=== PATIENT | male | born 1955 ===

== ENCOUNTER 2022-05-27 16:02 | Inpatient (IN) | payer OTHER ==
--- OUTSIDE RECORDS SUMMARY | 2022-05-27 16:49 | XMS REPORT | Continuity of Care Document ---
:1955 Author Organization [facility] t Address [address] [place] [address] Care Team Providers Name Role Phone Asked, No Pcp Primary Care Physician Unavailable CHAD MOE Attending Clinician Unavailable Chad Moe MD Attending Clinician Tashi Higgins Attending Clinician Unavailable Rad_Gamal Attending Clinician Unavailable CHIDI ABARCA Attending Clinician Unavailable Huseyin Smith MA Attending Clinician Unavailable Julio RN, Bernadine Attending Clinician Unavailable Mercedes_Yanicko Attending Clinician Unavailable Doctor Unassigned, [place] Attending Clinician Unavailable CHAD MOE Admitting Clinician Unavailable Chad Moe MD Admitting Clinician Geovany Admitting Clinician Unavailable Ngmelissaen_Tho Admitting Clinician Unavailable Payers Payer Name Policy Type Policy Number Effective Date Expiration Date Jaki DE LA CRUZ/NETTIE [id number] 2022 MEDICARE ADVANTAGE 00:00:00 [facility] MEDICARE [id number] COMPLETE (MEDICARE REPLACEMENT HMO) MEDICARE B-[place]: [id number] 2020 [email or web address] 00:00:00 Problems Condition Condition Condition Status Onset Resolution Last Treating Co mments Source Name Details Category Date Date Treatment Clinician Date Fall at Fall at Disease Active Univers home, home, 1-03 ity of sequela sequela 00:00: [place] 00 Medical Branch History of History of Disease Active U nivers stroke stroke 1-03 ity of 00:00: [place] 00 Medical Branch Closed Closed Problem Active 2021-05 [place] fracture Fracture 2-29 da of of 00:00: Medical proximal Proximal 00 Group right Right humerus Humerus Closed Closed Problem Active 2021-05 [place] fracture Fracture 2-29 da of of 00:00: Medical multiple Multiple 00 Group left ribs Left Ribs Abdominal Abdominal Problem Active [place] aortic Aortic 1-25 da aneurysm Aneurysm 00:00: Medica l 00 Group Melena Melena Problem Active [place] 1-25 da 00:00: Medical 00 Group Vomiting Vomiting Problem Active [place] 1-20 da 00:00: Medical 00 Group Chronic Chronic Problem Active [place] obstructiv Obstructiv 1-04 da e lung e Lung 00:00: Medical disease Disease 00 Group Smokes Smokes Problem Active 2020-05 [place] tobacco Tobacco 2-23 da daily Daily 00:00: Medical 00 Group Allergies, Adverse Reactions, Alerts Allergy Allergy Status Severity Reaction(s) Onset Inactive Treating Comm ents Source Name Type Date Date Clinician NO KNOWN Drug Active Univers ALLERGIE Class ity of [facility] Medical Branch Social History Social Habit Start Date Stop Date Quantity Comments Source History SDOH Social Unive rsity of Connections [facility] Med ical Together Branch History SDOH Social Unive rsity of [facility] Medical Branch History SDOH Social Unive rsity of [facility] Medical Membership Branch History SDOH Social Unive rsity of [facility] Medical Meetings Branch History of tobacco Passive smoker Un iversity of use [place] [facility] History SDOH 2022-05-21 2022-05-21 1 University o f Alcohol Std Drinks 00:00:00 00:00:00 [place] [facility] History SDOH 2022-05-21 2022-05-21 1 University o f Alcohol Binge 00:00:00 00:00:00 [place] Medic al Branch History SDOH Social 2022-05-21 2022-05-21 2 Unive rsity of [employer] 00:00:00 00:00:00 [place] M edical Branch History SDOH Social 2022-05-21 2022-05-21 5 Unive rsity of Connections Living 00:00:00 00:00:00 [place] [facility] History SDOH 2022-05-21 2022-05-21 0 University o f Physical Activity 00:00:00 00:00:00 [facility] edical DPW Branch History SDOH 2022-05-21 2022-05-21 0 University o f Physical Activity 00:00:00 00:00:00 [facility] edical MPS Branch History SDMA 2022-05-21 2022-05-21 5 University o f Financial 00:00:00 00:00:00 [place] [facility] History SDOH Food 2022-05-21 2022-05-21 1 Univers ity of Worry 00:00:00 00:00:00 [place] [facility] History SDOH Food 2022-05-21 2022-05-21 1 Univers ity of Scarcity 00:00:00 00:00:00 [place] [facility] History SDMA 2022-05-21 2022-05-21 2 University o f Transport Med 00:00:00 00:00:00 [place] [facility] History SDMA 2022-05-21 2022-05-21 2 University o f Transport Non-Med 00:00:00 00:00:00 [facility] edical Branch History SDMA 2022-05-21 2022-05-21 3 University o f Alcohol Frequency 00:00:00 00:00:00 [facility] edical Branch Tobacco use and 2022-05-20 2022-05-20 Smokeless Universit y of exposure 00:00:00 00:00:00 tobacco non-user [facility] dical Branch Cigarettes smoked 2021-07-17 2021-07-[address] current (pack per 00:00:00 00:00:00 Hospita l day) - Reported Cigarette 2021-07-17 2021-07-17 [facility] pack-years 00:00:00 00:00:00 Hospital Alcohol intake 2021-07-17 2021-07-17 Current drinker [facility] 00:00:00 00:00:00 of alcohol Hospital (finding) Sex Ass[birth year] At [birth year] [facility] 00:00:00 00:00:00 Hospital Smoking Status Start Date Stop Date Source Tobacco smoking consumption Univ ersity of [place] [facility] unknown Branch Occasional tobacco smoker 2022-05-20 00:00:00 Un iversity [facility] Medical Branch Smokes tobacco daily 2021-07-17 00:00:00 [facility] [place] [facility] Medications Ordered Filled Start Stop Current Ordering Indication Dosage Frequency Signature Comments Components Source Medication Medication Date Date Medication? Clinician (SIG) Name Name atorvastati Yes [id number] 40mg Take 1 Univers n 40 mg 1-10 tablet by ity of tablet 00:00: mouth at [place] 00 bedtime. Medical Branch Saline Yes [id number] 6mL 6 mL, Unive rs Bubble 1-06 Injection, ity of Study 14:18: SEE-INSTRU [place] 38 CTIONS, Medical Starting Branch on Thu05/23/22 at 0818, Until Discontinu ed, Routine thiamine Yes 100mg 100 mg, Unive rs (VITAMIN 1-05 Oral, ity of B1) tablet 15:00: DAILY, [place] 100 mg 00 First dose Medical on Thu Branch 05/22/22 at 0900, Until Discontinu ed, Routine clopidogreL Yes 75mg 75 mg, Univ ers (PLAVIX) 75 1-04 Oral, ity of mg tablet 15:00: DAILY, [place] 75 mg 00 First dose Medical on Thu05/21/22 at 0900, Until Discontinu ed, Routine sennosides- Yes 1{tbl} 1 tablet, Univers docusate 1-04 Oral, ity of sodium 15:00: DAILY, [place] (SENOKOT-S) 00 First dose Me dical 8.6-50 mg (after Branch per tablet last 1 tablet modificati on) on Thu05/21/22 at 0900, Until Discontinu ed, Routine aspirin Yes 81mg 81 mg, Univers chewable 1-04 Oral, ity of tablet 81 15:00: DAILY, [place] mg 00 First dose Medical on Thu Branch 05/21/22 at 0900, Until Discontinu ed, Routine atorvastati Yes 40mg 40 mg, Univ ers n (LIPITOR) 1-04 Oral, QHS, it y of tablet 40 03:00: [place] mg 00 (after Medical last Branch modificati on) on Thu05/20/22 at 2100, Until Discontinu ed, Routine heparin Yes 5000U 5,000 Univers (porcine) -04 Units, ity of injection 02:00: Subcutaneo [place] 5,000 Units 00 us, Q12H, Med ical First dose Branch on Thu05/20/22 at 2000, Until Discontinu ed, Routine famotidine 2022- No 20mg 20 mg, Univ ers (PEPCID) 40 05-21 Oral, BID, i ty of mg/5 mL (8 02:00: 13:50 2 doses, [place] mg/mL) 00 :00 First dose Medical suspension (after Branch 20 mg last modificati on) on Thu05/20/22 at 2000, Last dose on Thu05/21/22 at 0800, Routine
Indicatio n for use: None of the above clopidogreL 2022- No 300mg 300 mg, U nivers (PLAVIX) 05-20 Oral, ity of 300 mg 23:00: 23:10 ONCE, 1 [place] tablet 300 00 :00 dose, On Medic al mg Thu05/20/22 Branch at 1700, Routine aspirin 2022- No 325mg 325 mg, Unive rs tablet 325 05-20 Oral, ity of mg 23:00: 23:10 ONCE, 1 [place] 00 :00 dose, On Medical Thu05/20/22 Branch at 1700, Routine iopamidol 2022- No [id number] 50mL 50 mL, U nivers (ISOVUE 05-20 Intravenou ity o f 370-500 mL) 21:23: 21:23 s, ONCE, 1 [place] injection 00 :00 dose, On Medica l 50 mL Thu05/20/22 Branch at 1545, Routine sulfur 2022- No [id number] 5mL 5 mL, Unive rs hexafluorid 05-20 Intravenou i ty of e microsphr 20:30: 20:30 s, ONCE, 1 [place] (LUMASON) 00 :00 dose, On Medica l injection 5 Thu05/20/22 Br anch mL at 1430, Routine
administrative appeals tribunal member approving Restricted medication : MISSY BAKER potassium No 40meq 40 mEq, IV Univers chloride in 05-20 Infusion, it y of water (KCL) 19:45: 01:56 ONCE, 1 [place] 20 mEq/100 00 :00 dose, On Medic al mL RTU IVPB Thu05/20/22 Br anch 40 mEq at 1345, 200 mL foLIC acid Yes 1mg 1 mg, Univer s (FOLATE) 05-20 Oral, ity of tablet 1 mg 19:30: DAILY, [place] First dose Medical on [facility] 05/20/22 at 1330, Until Discontinu ed, Routine acetaminoph Yes 650mg 650 mg, Un alysha en 05-20 Oral, ity of (TYLENOL) 19:01: Q6HPRN, [place] tablet 650 36 Starting Medic al mg on 05/20/22 at 1301, Until Discontinu ed, Routine, Pain (scale 4-6) chlorhexidi Yes 15mL 15 mL, Univ ers ne 05-20 Oral ity of (PERIDEX) 18:00: ([place] 0.12 % 00 Spit Out), Medical mouthwash Q6H, First Bran ch 15 mL dose on Thu05/20/22 at 1200, Until Discontinu ed, Routine No known No No known [facility] 05-20 medication it y of 11:19: s [address] amlodipine amlodipine No amlodipine [place] 5 mg tablet 5 mg tablet 5 mg d a TAKE ONE TAKE ONE tablet Medic al (1) (1) TAKE ONE Group TABLET(S) TABLET(S) (1) BY MOUTH BY MOUTH TABLET(S) ONCE A DAY ONCE A DAY BY MOUTH FOR FOR ONCE A DAY HYPERTENSIO HYPERTENSIO FOR N. N. HYPERTENSI ON. famotidine famotidine No famotidine [place] 20 mg 20 mg 20 mg da tablet TAKE tablet TAKE tablet Medical ONE (1) ONE (1) TAKE ONE Group TABLET(S) TABLET(S) (1) BY MOUTH BY MOUTH TABLET(S) TWICE A TWICE A BY MOUTH DAY. DAY. TWICE A DAY. ondansetron ondansetron No ondansetro [place] HCl 4 mg HCl 4 mg n HCl 4 mg d a tablet TAKE tablet TAKE tablet Medical ONE (1) ONE (1) TAKE ONE Group TABLET(S) TABLET(S) (1) BY MOUTH BY MOUTH TABLET(S) EVERY SIX EVERY SIX BY MOUTH HOURS HOURS EVERY SIX NEEDED FOR NEEDED FOR HOURS NAUSEA AND NAUSEA AND NEEDED FOR VOMITING. VOMITING. NAUSEA AND VOMITING. amlodipine amlodipine No amlodipine [place] 5 mg tablet 5 mg tablet 5 mg d a TAKE ONE TAKE ONE tablet Medic al (1) (1) TAKE ONE Group TABLET(S) TABLET(S) (1) BY MOUTH BY MOUTH TABLET(S) ONCE A DAY ONCE A DAY BY MOUTH FOR FOR ONCE A DAY HYPERTENSIO HYPERTENSIO FOR N. N. HYPERTENSI ON. Vital Signs Vital Name Observation Time Observation Value Comments Source Systolic blood 2022-05-27 17:00:00 138 mm[Hg] [facility] Diastolic blood 2022-05-27 17:00:00 75 mm[Hg] [facility] Heart rate 2022-05-27 17:00:00 70 /min [facility] Body temperature 2022-05-27 17:00:00 36.33 Caitlin [facility] Respiratory rate 2022-05-27 17:00:00 21 /min [facility] Oxygen saturation in 2022-05-27 17:00:00 100 /min [facility] Arterial blood by [facility] Pulse oximetry Branch Body height 2022-05-20 17:15:00 180.3 cm [facility] Body weight 2022-05-20 17:14:00 60.8 kg [facility] BMI 2022-05-20 17:14:00 18.69 kg/m2 [facility] BP Diastolic 2022-05-15 00:00:00 81 mm[Hg] [facility] Height 2022-05-15 00:00:00 71 [in_i] [facility] BMI (Body Mass 2022-05-15 00:00:00 18.3 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 BP Systolic 2022-05-15 00:00:00 125 mm[Hg] [facility] Body Weight 2022-05-15 00:00:00 2100.8 [oz_av] [facility]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 BP Diastolic 2021-06-11 00:00:00 79 mm[Hg] [facility] Height 2021-06-11 00:00:00 71 [in_i] [facility] BMI (Body Mass 2021-06-11 00:00:00 18.5 kg/m2 [facility] Medical Index) Group BP Systolic 2021-06-11 00:00:00 139 mm[Hg] [facility] Body Weight 2021-06-11 00:00:00 2128 [oz_av] [facility] Height 2021-06-06 00:00:00 71 [in_i] [facility] BP Diastolic 2021-05-21 00:00:00 85 mm[Hg] [facility] Height 2021-05-21 00:00:00 71 [in_i] [facility] BMI (Body Mass 2021-05-21 00:00:00 18.5 kg/m2 [facility] BP Systolic 2021-05-21 00:00:00 130 mm[Hg] [facility] Body Weight 2021-05-21 00:00:00 2120 [oz_av] [facility] BP Diastolic 2021-05-09 00:00:00 86 mm[Hg] [facility] Height 2021-05-09 00:00:00 71 [in_i] [facility] BMI (Body Mass 2021-05-09 00:00:00 18.4 kg/m2 [facility] Group BP Systolic 2021-05-09 00:00:00 137 mm[Hg] [facility] Body Weight 2021-05-09 00:00:00 2112 [oz_av] [facility] BMI (Body Mass 2021-03-11 00:00:00 18.4 kg/m2 [facility]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 BP Systolic 2021-03-11 00:00:00 118 mm[Hg] [facility] Body Weight 2021-03-11 00:00:00 2112 [oz_av] [facility] BP Diastolic 2021-03-11 00:00:00 77 mm[Hg] [facility] Height 2021-03-11 00:00:00 71 [in_i] [facility] Systolic blood 2021-07-17 20:49:00 173 mm[Hg] [facility] pressure Diastolic blood 2021-07-17 20:49:00 85 mm[Hg] [facility] pressure Heart rate 2021-07-17 20:49:00 91 /min [facility] Body temperature 2021-07-17 20:49:00 33.33 Caitlin [facility] Body height 2021-07-17 20:49:00 180.3 cm [facility] Body weight 2021-07-17 20:49:00 60.782 kg [facility] BMI 2021-07-17 20:49:00 18.69 kg/m2 [facility] Oxygen saturation in 2021-07-17 20:49:00 100 /min [facility] Arterial blood by Pulse oximetry Procedures Procedure Date / Time Performing Clinician Source Performed TRANSTHORACIC ECHO (TTE) 2022-05-23 14:15:00 Nahun Khan [facility] [place] [place] MODIFIED BARIUM 2022-05-22 17:50:00 Tan [facility] XR SHOULDER 2+ VW RIGHT 2022-05-21 23:35:00 Zana Roblero [facility] XR HIPS 3 VW BILATERAL 2022-05-21 18:15:00 Tan Gonzalez [facility] CBC WITH DIFF 2022-05-21 10:28:00 Bill [facility] VITAMIN B1 (THIAMINE), 2022-05-21 10:28:00 [facility] WHOLE BLOOD [facility] MAGNESIUM 2022-05-21 10:28:00 Bill [facility] BASIC METABOLIC PANEL 2022-05-21 10:28:00 Nahun Khan [facility] (NA, K, CL, CO2, Medical Branch GLUCOSE, BUN, CREATININE, CA) LIPID PANEL 2022-05-21 10:28:00 Bill [facility] ([id number])(TOTAL Medical [place] CHOLESTEROL, TRIGLYCERIDES, HDL) XR HUMERUS 2 VW RIGHT 2022-05-20 23:01:00 [facility] CT STROKE PERFUSION W 2022-05-20 21:30:46 Bill [facility] CONTRAST [facility] MR BRAIN WO CONTRAST 2022-05-20 21:10:00 [facility] TRANSTHORACIC ECHO (TTE) 2022-05-20 20:27:50 Bill [facility] COMPLETE W/ CONTRAST Medical [facility] HEAD WO CONTRAST 2022-05-20 18:23:05 Bill [facility] CT ANGIOGRAM NECK 2022-05-20 18:22:51 Bill [facility] CT ANGIOGRAM HEAD 2022-05-20 18:22:32 Bill [facility] ETHANOL 2022-05-20 18:01:00 Bill [facility] CBC WITH DIFF 2022-05-20 18:01:00 Bill [facility] GLYCOSYLATED HEMOGLOBIN 2022-05-20 18:01:00 Bill [facility] (A1C) [facility] PROTHROMBIN TIME / INR 2022-05-20 18:01:00 Bill [facility] ACTIVATED PARTIAL 2022-05-20 18:01:00 Bill [facility] THRMPLAS ROBIN [facility] POCT GLUCOSE (AUTOMATED) 2022-05-20 18:01:00 Chad Moe [facility] MAGNESIUM 2022-05-20 18:01:00 Bill [facility] FOLATE 2022-05-20 18:01:00 Bill [facility] TROPONIN I 2022-05-20 18:01:00 Bill [facility] THYROID STIMULATING 2022-05-20 18:01:00 [facility] Branch BASIC METABOLIC PANEL 2022-05-20 18:01:00 francisco [facility] (NA, K, CL, CO2, Medical Branch GLUCOSE, BUN, CREATININE, CA) MRSA / MSSA SCREEN BY 2022-05-20 17:54:00 Sheryl [facility] PCR, NARES Medical Branch XR CHEST 1 VW 2022-05-20 17:49:00 Sheryl [facility] o f [facility] US CAROTID DUPLEX 2021-08-23 17:15:00 [facility] BILATERAL [facility] US DUPLEX ARTERIAL LOWER 2021-08-23 16:20:00 [facility] EXTREMITY BILATERAL [facility] US ANKLE BRACHIAL INDEX 2021-08-23 16:20:00 [facility] US DUPLEX AORTA INFERIOR 2021-08-23 14:55:00 [facility] VENA CAVA COMPLETE [facility] CT ABD/PELVIC EXTERNAL 2021-06-06 23:56:45 [facility] STUDY [facility] HOSPITAL ADMISSION 2021-05-20 06:01:00 Doctor Unassigned, No Uni versity of [facility] unlisted imaging order 2021-05-09 00:00:00 [facility] Plan of Care Planned Activity Planned Date Details Comments Source Future Scheduled 2022-04-29 COVID-19 VACCINE (#1) [facility] Test 06:38:53 [code = COVID-19 VACCINE (#1)] Future Scheduled 2022-04-29 65+ PNEUMOCOCCAL [facility] [place] [facility] Test 06:38:53 VACCINE (1 - PCV) [code = 65+ PNEUMOCOCCAL VACCINE (1 - PCV)] Future Scheduled 2022-04-29 Hepatitis C screening [facility] Test 06:38:53 (procedure) [code = 857212448] Future Scheduled 2022-04-29 COLONOSCOPY SCREENING [facility] Test 06:38:53 [code = COLONOSCOPY SCREENING] Future Scheduled 2022-04-29 Screening for [facility] Test 06:38:53 malignant neoplasm of lung (procedure) [code = 463134004] Future Scheduled 2022-04-29 SHINGLES VACCINES (1 Met [facility] Test 06:38:53 of 2) [code = SHINGLES VACCINES (1 of 2)] Future Scheduled 2022-04-29 INFLUENZA VACCINE [facility] Test 06:38:53 [code = INFLUENZA VACCINE] Future Scheduled 2022-04-29 COVID-19 VACCINE (#1) [facility] Test 06:38:53 [code = COVID-19 VACCINE (#1)] Future Scheduled 2022-04-29 65+ P[facility]UMOCOCCAL [facility] Test 06:38:53 VACCINE (1 - PCV) [code = 65+ PNEUMOCOCCAL VACCINE (1 - PCV)] Future Scheduled 2022-04-29 Hepatitis C screening [facility] Test 06:38:53 (procedure) [code = 730829421] Future Scheduled 2022-04-29 COLONOSCOPY SCREENING [facility] Test 06:38:53 [code = COLONOSCOPY SCREENING] Future Scheduled 2022-04-29 Screening for [facility] Test 06:38:53 malignant neoplasm of lung (procedure) [code = 354212356] Future Scheduled 2022-04-29 SHINGLES VACCINES (1 Met [facility] Test 06:38:53 of 2) [code = SHINGLES VACCINES (1 of 2)] Future Scheduled 2022-04-29 INFLUENZA VACCINE [facility] Test 06:38:53 [code = INFLUENZA VACCINE] Future Scheduled 2022-04-29 COVID-19 VACCINE (#1) [facility] Test 06:38:53 [code = COVID-19 VACCINE (#1)] Future Scheduled 2022-04-29 65+ PNEUMOCOCCAL [facility] Test 06:38:53 VACCINE (1 - PCV) [code = 65+ PNEUMOCOCCAL VACCINE (1 - PCV)] Future Scheduled 2022-04-29 Hepatitis C screening [facility] Test 06:38:53 (procedure) [code = 953954451] Future Scheduled 2022-04-29 COLONOSCOPY SCREENING [facility] Test 06:38:53 [code = COLONOSCOPY SCREENING] Future Scheduled 2022-04-29 [facility] Test 06:38:53 malignant neoplasm of lung (procedure) [code = 048829921] Future Scheduled 2022-04-29 SHINGLES VACCINES (1 Met [facility] Test 06:38:53 of 2) [code = SHINGLES VACCINES (1 of 2)] Future Scheduled 2022-04-29 INFLUENZA VACCINE [facility] Test 06:38:53 [code = INFLUENZA VACCINE] Future Scheduled 2022-04-29 COVID-19 VACCINE (#1) [facility] Test 06:38:53 [code = COVID-19 VACCINE (#1)] Future Scheduled 2022-04-29 65+ [facility]OCOCCAL [facility] Test 06:38:53 VACCINE (1 - PCV) [code = 65+ PNEUMOCOCCAL VACCINE (1 - PCV)] Future Scheduled 2022-04-29 Hepatitis C screening [facility] Test 06:38:53 (procedure) [code = 979315599] Future Scheduled 2022-04-29 COLONOSCOPY SCREENING [facility] Test 06:38:53 [code = COLONOSCOPY SCREENING] Future Scheduled 2022-04-29 [facility] Test 06:38:53 malignant neoplasm of lung (procedure) [code = 838123372] Future Scheduled 2022-04-29 SHINGLES VACCINES (1 Met [facility] Test 06:38:53 of 2) [code = SHINGLES VACCINES (1 of 2)] Future Scheduled 2022-04-29 INFLUENZA VACCINE [facility] Test 06:38:53 [code = INFLUENZA VACCINE] Future Scheduled 2022-04-29 COVID-19 VACCINE (#1) [facility] Test 06:38:53 [code = COVID-19 VACCINE (#1)] Future Scheduled 2022-04-29 65+ [facility]OCOCCAL [facility] Test 06:38:53 VACCINE (1 - PCV) [code = 65+ PNEUMOCOCCAL VACCINE (1 - PCV)] Future Scheduled 2022-04-29 Hepatitis C screening [facility] Test 06:38:53 (procedure) [code = 259839078] Future Scheduled 2022-04-29 COLONOSCOPY SCREENING [facility] Test 06:38:53 [code = COLONOSCOPY SCREENING] Future Scheduled 2022-04-29 [facility] Test 06:38:53 malignant neoplasm of lung (procedure) [code = 035435107] Future Scheduled 2022-04-29 SHINGLES [facility]ACCINES ([facility] 06:38:53 of 2) [code = SHINGLES VACCINES (1 of 2)] Future Scheduled 2022-04-29 INFLUENZA VACCINE [facility] Test 06:38:53 [code = INFLUENZA VACCINE] Future Appointment 2022-06-15 Lebron Cm, [address] [place] [facility] 00:00:00 [facility] [address]; , [place] [address] Medication [facility] sodium 8.6-50 mg per Medical Branch tablet [code = 135239] Medication 2022-05-28 thiamine 100 mg [facility] 00:00:00 tablet [code = Medical Branc h 464935] Medication 2022-05-28 aspirin 81 mg [facility] 00:00:00 chewable tablet [code Medica l Branch = 580021] Medication 2022-05-28 clopidogreL 75 mg [facility] 00:00:00 tablet [code = Medical Branc h 884894] Medication 2022-05-28 foLIC acid 1 mg [facility] 00:00:00 tablet [code = Medical Bran h 185724] Encounters Start End Encounter Admission Attending Care Care Encounter Source Date/Time Date/Time Type Type Clinicians Facility Department ID 2022-05-20 2022-05-27 [facility] [id number] Univers 10:20:00 16:01:00 CHAD burt [facility] 2022-05-20 [facility] [id number] Univers 10:20:00 16:01:00 Encounter [id number] Anthony as [id number] [place] [id number] Branch 2022-05-19 2022-05-20 Emergency ER Higgins, [facility] [id number] 50 [place] 16:57:00 08:36:00 Tashi [id number] [facility] 2022-05-20 2022-05-20 [place] [id number] [place] 00:00:00 00:00:00 0103 Medical Group 2022-05-15 2022-05-15 Emergency ER Higgins, [facility] [id number] [place] 08:25:00 11:40:00 Shabaz -[id number] [facility] 2022-05-15 2022-05-15 Outpatient Geovany [facility] [id number] 022 [place] 00:00:00 00:00:00 1229 Medical Group 2022-05-15 2022-05-15 Lebron Ghazala [facility] [place] - [id number] M [place] 00:00:00 00:00:00 MD Gamal: [address] [employer] [place] [employer] - [address], [facility], [place] [address] , Ph. 2022-03-11 2022-03-11 Outpatient KristoferGamal [facility] [id number] 022 [place] 00:00:00 00:00:00 1025 [facility] 2021-08-23 2021-08-23 Outpatient [facility] [id number] 335 [place] 00:00:00 00:00:00 [address] 2021-08-23 2021-08-23 Travel 1.2.840.1 1.2.920.204 [id number] Methodi 00:00:00 00:00:[address] 3.430.2.7 0.2.7.3.698 Ho spita .3.059317 084.8 l .8 2021-08-23 2021-08-23 Outpatient [facility] [id number] 257 [place] 00:00:00 00:00:00 CHID[address] 2021-08-23 2021-08-23 Travel 1.2.840.1 1.2.576.155 [id number] [id number] Methodi 00:00:00 00:00:[address] 3.430.2.7 0.2.7.3.698 Ho spita .3.291611 084.8 l .8 2021-08-23 2021-08-23 Outpatient [facility] [id number] 257 [place] 00:00:00 00:00:00 CHIDI [address] 2021-07-17 2021-07-18 [facility], 1.2.840.1 [id number] Methodi 14:30:00 10:51:16 Visit Chidi 17710.1.1 120 [facility] 3.430.2.7 Hosp jose .3.540538 l .8 2021-07-17 2021-07-18 Office [facility], 1.2.840.1 [id number] Methodi 14:30:00 10:51:16 Visit Chidi 37355.1.1 120 [facility] 3.430.2.7 Hosp jose .3.531277 l .8 2021-07-18 2021-07-18 [facility], 1.2.840.1 [id number] Methodi 00:00:00 00:00:00 Only [place] 46317.1.1 011 s t 3.430.2.7 Hospit a .3.921407 l .8 2021-07-18 2021-07-18 [facility], 1.2.840.1 [id number] Methodi 00:00:00 00:00:00 Only [place] 76854.1.1 011 s t 3.430.2.7 Hospit a .3.559251 l .8 2021-07-17 2021-07-17 [facility], 1.2.840.1 [id number] Methodi 14:50:51 23:59:00 Encounter Chidi 21004.1.1 604 [facility] 3.430.2.7 Hosp jose .3.619912 l .8 2021-07-17 2021-07-17 [facility], 1.2.840.1 [id number] Methodi 14:50:51 23:59:00 Encounter Chidi 89322.1.1 604 [facility] 3.430.2.7 Hosp jose .3.968307 l .8 2021-07-17 2021-07-17 [facility], 1.2.840.1 [id number] 4505 Methodi 00:00:00 00:00:00 Only Chidi 85982.1.1 602 [facility] 3.430.2.7 Hosp jose .3.940592 l .8 2021-07-17 2021-07-17 Travel 1.2.840.1 1.2.011.326 4040 [id number] Methodi 00:00:00 00:00:[address] 3.430.2.7 0.2.7.3.698 Ho spita .3.631214 084.8 l .8 2021-07-17 2021-07-17 Orders [place], 1.2.840.1 [id number] 2331 Methodi 00:00:00 00:00:00 Only Chidi 01309.1.1 602 [facility] 3.430.2.7 Hosp jose .3.984199 l .8 2021-07-17 2021-07-17 Travel 1.2.840.1 1.2.229.890 8024 [id number] Methodi 00:00:00 00:00:[address] 3.430.2.7 0.2.7.3.698 Ho spita .3.258617 084.8 l .8 2021-06-13 2021-06-13 Telephone Julio, 1.2.840.1 [id number] Methodi 00:00:00 00:00:[address] 3.430.2.7 Hospit a .3.945750 l .8 2021-06-13 2021-06-13 Telephone Julio, 1.2.840.1 [id number] Methodi 00:00:00 00:00:[address] 3.430.2.7 Hospit a .3.302204 l .8 2021-06-12 2021-06-12 [place] [address] - [facility] 02:43:00 02:43:00 [facility] 2021-06-11 2021-06-11 Lebron Armenta [facility] [place] - [address] [place] 00:00:00 00:00:00 MD Gamal: [address] [place] [address] , Ph. 2021-06-07 2021-06-07 Outpatient Geovany [facility] [id number] 022 [place] 12:02:00 12:02:00 120 [facility] 2021-06-06 2021-06-06 Lebron Armenta [facility] [place] - [address] [place] 00:00:00 00:00:00 MD Gamal: [address] [place] [address] , Ph. 2021-06-05 2021-06-05 Outpatient Geovany [facility] [id number] 022 [place] 04:49:00 04:49:00 0119 [facility] 2021-05-21 2021-05-21 Lebron Armenta [facility] [place] - [address] [place] 00:00:00 00:00:00 MD Gamal: [address] [place] [address] , Ph. 2021-05-20 2021-05-20 Orders Doctor GUERRERO 1.2.840.114 [id number] [facility] 00:00:00 00:00:00 Only Unassigned, ROLY 350.1.13.10 ity of [place] [facility] 4.2.7.2.686 Anthony as [id number] [place] [address] [place] 2021-05-09 2021-05-09 Lebron Armenta [facility] [place] - [address] [place] 00:00:00 00:00:00 MD Gamal: Discovery Burt3 da [address] [place] [address] 201, [facility] [address] , Ph. 2021-05-06 2021-05-06 Outpatient A_Byrd [facility] [id number] 021 [place] 12:35:00 12:35:00 1220 [facility] 2021-04-23 2021-04-23 Outpatient A_Byrd [facility] [id number] 021 [place] 03:11:00 03:11:00 1207 [facility] 2021-03-11 2021-03-11 Lorena A_Byrd [facility] [place] - [address] [place] 00:00:00 00:00:00 Rosie Balderas 1025 [facility] Medical CHILD THERAPIST: 600 [facility] 201, [place] [address] , Ph. 2021-02-13 2021-02-13 Outpatient Nguyen_o [facility] 1169 94-202 [place] 06:07:00 06:07:00 10422 [facility] Outre h Program Results Test Description Test Time Test Comments Results Result Comments Source VITAMIN B1 (THIAMINE), WHOLE BLOOD 2022-05-24 16:04:33 Test Item Value Reference Range Interpretation Comme nts Vitamin B1, Whole Blood 163 nmol/L 70-180 INTE RPRETIVE INFORMATION: Vitamin B1, (test code = 39223-4) Whole Blood This assay measures the concentration o f thiamine diphosphate (TDP), the prim danielle active form of vitamin B1. Willie roximately 90 percent of vitamin B1 p resent in whole blood is TDP. Thiamin e and thiamine monophosphate, which comprise the remaining 10 pe rcent, are not measured. This test was developed and its performance characteristics determined by [facility]. It has not been cl eared or approved by the US Food and Drug Administration. This test was p erformed in a CLIA certified labor atory and is intended for clinical pu rposes.Performed By: [facility] [place] [address] 370Laboratory Director: Francia Anna MD, PhD [facility]2022-[facility]-23 17:49:27 Test Item Value Reference Range Interpretation Comments Height (test code = in 1916816575) Weight (test code = lbs 0822836504) Systolic BP (test mmHg code = 9237713942) Diastolic BP (test mmHg code = 4630295586) Heart Rate (test code bpm = 0679489938) BSA (test code = 1.78 m2 3375216638) Radiology Study observation (narrative) (test code = 27000-7) MAXIMINO (test code = MAXIMINO) ?Focused study for shunt evaluation ?Left?Atrium: Saline contrast shows no shunt. Left VentricleLeft ventricle size is normal. Normal systolic function with a visually estimated EF of 55 - 60%.Left AtriumSaline contrast shows no shunt.Study DetailsA limited echocardiogram was performed using 2D. Saline contrast was performed. [facility] NorthwestLIPID PANEL (03875)(TOTAL CHOLESTEROL, TRIGLYCERIDES, HDL)2022-05-21 12:21:19 Test Item Value Reference Range Interpretation Comments CHOL (test code = 150 mg/dL 120-200 4978371094) HDL (test code = 39 mg/dL See_Comment L [Automated message] 3532722203) The system [employer] generated this result transmit nestor reference range : >=40. The refer ence range was not u sed to interpret th is result as normal/abnormal . HDLC RATIO (test code = See_Comment [Au tomated message] 3375493078) The system [employer] generated this result transmit nestor reference range : <=5.0. The refe rence range was not u sed to interpret th is result as normal/abnormal . TRIG (test code = 95 mg/dL 30-170 0652749880) LDL CHOL (test code = 92 mg/dL See_Comment [Auto mated message] 19626-5) The system [employer] generated this result transmit nestor reference range : <=160. The refe rence range was not u sed to interpret th is result as normal/abnormal . VLDL (test code = 19 mg/dL 5-60 8254082739) Lab Interpretation (test Abnormal code = 85683-6) [facility] (NA, K, CL, CO2, GLUCOSE, BUN, CREATININE, CA)2022-05-21 12:21:19 Test Item Value Reference Range Interpretation Comments NA (test code = 137 mmol/L 135-145 9792467790) K (test code = 3.5 mmol/L 3.5-5.0 5244805457) CL (test code = 102 mmol/L 98-108 0753275862) CO2 TOTAL (test code = 25 mmol/L 23-31 9448252739) AGAP (test code = 2-16 9441553680) BUN (test code = 13 mg/dL 7-23 3156258914) GLUCOSE (test code = 113 mg/dL 70-110 H 5781024083) CREATININE (test code = 0.54 mg/dL 0.60-1.25 L 9698773675) CALCIUM (test code = 8.7 mg/dL 8.6-10.6 6191880067) eGFR (test code = mL/min/1.73m2 1875994485) MAXIMINO (test code = MAXIMINO) Association of Glomerular Filtration Rate (GFR) and Staging of Kidney Disease* + --+ --+ ------+| GFR (mL/min/1.73 m2) ?| With Kidney Damage ?| ?Without Kidney Damage+ --------+ --------+ +| ?>90 ?| ?Stage one ?| ? Normal ?+ ---+ ---+ -------+| ?60-89 ?| ?Stage two ?| ? Decreased GFR ? + --+ --+ ------+| ?30-59 ?| ?Stage three ?| ? Stage three ? + --+ --+ ------+| ?15-29 ?| ?Stage four ? | ? Stage four ?+ ---+ ---+ -------+| ?<15 (or dialysis) ? ?| ?Stage five ? | ? Stage five ?+ ---+ ---+ -------+ *Each stage assumes the associated GFR level has been in effect for at least three months. ?Stages 1 to 5, with or without kidney disease, indicate chronic kidney disease. Notes: Determination of stages one and two (with eGFR >59mL/min/1.73 m2) requires estimation of kidney damage for at least three months as defined by structural or functional abnormalities of the kidney, manifested by either:Pathological abnormalities or Markers of kidney damage (including abnormalities in the composition of the blood or urine or abnormalities in imaging tests). Lab Interpretation Abnormal (test code = 08108-2) [facility]2023-01-04 12:21:19 Test Item Value Reference Range Interpretation Comments MAGNESIUM (test code = 1077985093) 2.0 mg/dL 1.7-2.4 Lab Interpretation (test code = Normal 85098-3) [facility] WITH [id number] 10:52:09 Test Item Value Reference Range Interpretation Comments WBC (test code = See_Comment H [Automated 6690-2) message] The system which generated this result transmit nestor reference range : 4.20 - 10.70 10*3/?L. The reference range was not used to interpret this result as normal/abnormal . RBC (test code = See_Comment L [Automated 789-8) message] The system which generated this result transmit nestor reference range : 4.26 - 5.52 10*6/?L. The reference range was not used to interpret this result as normal/abnormal . HGB (test code = 11.8 g/dL 12.2-16.4 L 718-7) HCT (test code = 33.8 % 38.4-49.3 L 4544-3) MCV (test code = 93.9 fL 81.7-95.6 787-2) MCH (test code = 32.8 pg 26.1-32.7 H 785-6) MCHC (test code = 34.9 g/dL 31.2-35.0 786-4) RDW-SD (test code = 46.4 fL 38.5-51.6 93805-6) RDW-CV (test code = 13.8 % 12.1-15.4 788-0) PLT (test code = See_Comment [Automated 777-3) message] The system which generated this result transmit nestor reference range : 150 - 328 10*3/ ?L. The reference range was not u sed to interpret th is result as normal/abnormal . MPV (test code = 9.5 fL 9.8-13.0 L 43634-7) NRBC/100 WBC (test See_Comment [Automat ed code = 3404187037) message] The system which generated this result transmit nestor reference range : 0.0 - 10.0 /100 WBCs. The reference range was not used to interpret this result as normal/abnormal . NRBC x10^3 (test code See_Comment [Auto mated = 8106562807) message] The system which generated this result transmit nestor reference range : 10*3/?L. The reference range was not used to interpret this result as normal/abnormal . GRAN MAT (NEUT) % 81.8 % (test code = 770-8) IMM GRAN % (test code 0.90 % = 7946843870) LYMPH % (test code = 5.7 % 736-9) MONO % (test code = 8.7 % 5905-5) EOS % (test code = 2.5 % 713-8) BASO % (test code = 0.4 % 706-2) GRAN MAT x10^3(ANC) 11.10 10*3/uL 1.99-6.95 H (test code = 4410765242) IMM GRAN x10^3 (test 0.12 10*3/uL 0.00-0.06 H code = 9268187267) LYMPH x10^3 (test code 0.78 10*3/uL 1.09-3.23 L = 731-0) MONO x10^3 (test code 1.18 10*3/uL 0.36-1.02 H = 742-7) EOS x10^3 (test code = 0.34 10*3/uL 0.06-0.53 711-2) BASO x10^3 (test code 0.05 10*3/uL 0.01-0.09 = 704-7) Lab Interpretation Abnormal (test code = 70734-3) [facility] (TTE)2022-05-21 00:22:38 Test Item Value Reference Range Interpretation Comments Height (test code = in 2384108365) Weight (test code = lbs 4676500961) Systolic BP (test code = mmHg 0967397107) Diastolic BP (test code mmHg = 0499538908) Heart Rate (test code = bpm 0775631243) BSA (test code = 1.78 m2 2736146134) TASV (test code = 17.3 cm/s 1701072687) LVIDD (test code = 3.60 cm 1084583775) Left Ventricular End 56.1 mL Diastolic Volume by Teichholz Method (test code = 0907495) IVS (test code = 1.10 cm 8425802544) Interventricular Septum 1.10 cm Diastolic Thickness by 2D (test code = 0726632) LVPWD (test code = 1.23 cm 6278539739) PW (test code = 1.23 cm 0.6-1.2 3542906211) EF(Teich) (test code = 79.00 % 9079634203) LVIDS (test code = 1.94 cm 6571366799) Left Ventricular End 11.8 mL Systolic Volume by Teichholz Method (test code = 8419200) FS (test code = 47 % 1241454102) EF - 2D (test code = 79.00 % 17562004) LVOT diameter (test code 1.99 cm = 5420603439) LVOT area (test code = 3.10 cm2 6254352190) Ao root diam (test code 3.10 cm = 4269415079) Aortic root (test code = 3.1 cm 0252489853) Ao root annulus (test 3.1 cm code = 4027755961) LA size (test code = 3.4 cm 3306857027) LAV(MOD-sp4) (test code 55.00 mL = 9295675276) MV Peak A Jovanni (test code 195.6 cm/s = 9405791983) E wave decelartion time 0.16 s (test code = 0866591518) MV Peak E Jovanni (test code 110.2 cm/s = 6830944884) E/A ratio (test code = ratio 3180396175) Tapse (test code = 1.91 cm 8276151676) LA Volume Index (BP) 29.6 mL/m2 (test code = 8781757204) LA volume (BP) (test 52.7 mL code = 6018742264) LAV(MOD-sp2) (test code 46.10 mL = 2809631430) TR Peak Jovanni (test code = 225.9 cm/s 9129286946) Triscuspid Valve mmHg Regurgitation Peak Gradient (test code = 2541032469) Radiology Study observation (narrative) (test code = 67940-5) MAXIMINO (test code = MAXIMINO) ?Left?Ventricle: Left ventricle size is normal. Moderate septal thickening of 1.5 cm Normal wall motion. Hyperdynamic systolic function with a visually estimated EF of greater than 65%. Elevated LVOT gradient with peak gradient 75 mmHg with valsalva. Significant turbulence noted with color doppler in region of LVOT. Differential includes ARABELLA of the mitral valve or the chordae. There is grade 1 diastolic dysfunction. ?Right?Ventricle: Right ventricle size is normal. Normal systolic function. ?Left?Atrium: Left atrium size is normal. ?Right?Atrium: Right atrium size is normal. ?Tricuspid?Valve: Insufficient tricuspid regurgitation jet to estimate RVSP.RA pressure is 0-5 mmHg. ?Aorta: Normal sized aortic root. ?Pericardium: Trivial pericardial effusion present. ?Consider cardiac MRI for further evaluation of LVOT gradient. Left VentricleLeft ventricle size is normal. Moderate septal thickening of 1.5 cm Normal wall motion. Hyperdynamic systolic function with a visually estimated EF of greater than 65%. Elevated LVOT gradient with peak gradient 75 mmHg with valsalva. Significant turbulence noted with color doppler in region of LVOT. Differential includes ARABELLA of the mitral valve or the chordae. There is grade 1 diastolic dysfunction.Right VentricleRight ventricle size is normal. Normal systolic function.Left AtriumLeft atrium size is normal.Right AtriumRight atrium size is normal.IVC/SVCIVC diameter is less than or equal to 21 mm and decreases greater than 50% during inspiration; therefore the estimated right atrial pressure is normal (~0-5 mmHg).Mitral ValveMitral valve structure is normal.Tricuspid ValveTricuspid valve structure is normal. Insufficient tricuspid regurgitation jet to estimate RVSP.RA pressure is 0-5 mmHg.Aortic ValveTricuspid. No transvalvular regurgitation. No evidence of aortic stenosis.Pulmonic ValveNot well visualized. Pulmonic valve is normal in structure and function.Ascending AortaNormal sized aortic root.PericardiumTrivi al pericardial effusion present.Study DetailsA complete echocardiogram was performed using 2D, color flow Doppler and spectral Doppler. 5 mL of Lumason ultrasound enhancing agent used. [facility]2022-05-20 18:02:09 Test Item Value Reference Range Interpretation Comments POCT GLU (test code = 9015828834) 110 mg/dL 70-110 Lab Interpretation (test code = Normal 16957-7) [facility] W Auto Differential panel - Blood 2021-06-06 03:00:00 Test Item Value Reference Range Interpretation Comments white blood count (test code = 6.0 K/uL 4.0-12.3 white blood count) red blood count (test code = red 4.92 M/uL 3.80-5.80 blood count) hemoglobin (test code = 16.6 g/dL 11.7-17.2 hemoglobin) hematocrit (test code = 47.4 % 35.0-51.0 hematocrit) MCV [Entitic volume] (test code = 96.3 fL 83.0-100.0 73034-6) mean corpuscular hemoglobin (test 33.7 pg 26.8-33.4 H code = mean corpuscular hemoglobin) mean corpuscular HGB conc (test 35.0 g/dL 30.0-35.0 code = mean corpuscular HGB conc) red cell distribution width (test 12.3 % 12.0-14.0 code = red cell distribution width) platelet count (test code = 123 K/uL 175-450 L platelet count) Platelets reticulated/100 3.3 % 0-8 platelets in Blood by Automated count (test code = 36759-3) mean platelet volume (test code = 9.8 fL 9.4-12.6 mean platelet volume) Segmented neutrophils/100 69.9 % 44.7-82.4 leukocytes in Blood (test code = 98930-0) Immature granulocytes [#/volume] 0.04 K/uL 0.00-0.03 H in Blood (test code = 85594-2) lymphocyte% (test code = 16.2 % 10.0-50.0 lymphocyte%) mono % (test code = mono %) 11.2 % 3.9-13.4 eos % (test code = eos %) 1.3 % 0.0-6.4 Basophils/100 leukocytes in 0.7 % 0.2-1.2 Unspecified specimen (test code = 42057-8) Band form neutrophils [#/volume] 4.20 K/uL 1.78-5.38 in Blood (test code = 91569-4) Lymphocytes [#/volume] in 0.97 K/uL 1.32-3.57 L Unspecified specimen by Automated count (test code = 36548-2) mono # (test code = mono #) 0.67 K/uL 0.30-0.82 eos # (test code = eos #) 0.08 K/uL 0.04-0.54 basophil # (test code = basophil 0.04 K/uL 0.01-0.08 #) NRBC% (test code = NRBC%) 0 /100 WBC 0-0.2 NRBC# (test code = NRBC#) 0 K/uL [facility] - Serum or Plasma 2021-06-06 03:00:00 Test Item Value Reference Range Interpretation Comments glucose (test code = glucose) 122 mg/dL 82-115 H Urea nitrogen [Mass/volume] in 8 mg/dL 8-23 Serum or Plasma (test code = 3094-0) osmolality calculated,serum (test 268 mOsm/kg 280-300 L code = osmolality calculated,serum) creatinine (test code = 0.72 mg/dL 0.70-1.20 creatinine) glomerular filtration rate (test >60.00 code = glomerular filtration rate) Urea nitrogen/Creatinine [Mass 11.1 12.0-20.0 L Ratio] in Serum or Plasma (test code = 3097-3) sodium level (test code = sodium 134 mmol/L 135-145 L level) Potassium [Moles/volume] in Body 4.1 mmol/L 3.5-5.2 fluid (test code = 2821-7) chloride level (test code = 94 mmol/L 98-108 L chloride level) CO2 (test code = CO2) 29 mmol/L 21-32 anion gap (test code = anion gap) 15.1 mEq/L 12.0-20.0 calcium level (test code = 9.6 mg/dL 8.8-10.2 calcium level) total protein (test code = total 8.0 g/dL 6.6-8.7 protein) albumin (test code = albumin) 4.2 g/dL 3.5-5.2 globulin (test code = globulin) 3.8 g/dL 1.5-4.5 A/G ratio (test code = A/G ratio) 1.1 >1.0 bilirubin,total (test code = 0.8 mg/dL 0.0-1.2 bilirubin,total) AST/SGOT (test code = AST/SGOT) 25 U/L 15-40 Alanine aminotransferase 12 U/L 0-41 [Enzymatic activity/volume] in Serum or Plasma (test code = 1742-6) Alkaline phosphatase [Enzymatic 67 U/L 40-130 activity/volume] in Serum or Plasma (test code = 6768-6) [facility], method unspecified - [id number] 00:00:00NeutrophilsBandLymphocyteAtypical LymphMonocyteEosinophilBasophilMetamyelocyteMyelocytePromyelocyteBlastsNucleated Red Blood CellAbs Neutrophil Count (Man)Abs Lymph Count (Man)Abs Monocyte Count (Man)Abs Eosinophil Count (Man)Abs Basophil Count (Man)Platelet EstimatePlatelet MorphologyMacrocytosisMagee General HospitalAmylase [Enzymatic activity/volume] in Serum or [id number] 00:00:00 Test Item Value Reference Range Interpretation Comments Amylase [Enzymatic activity/volume] in 51 U/L 28-100 Serum or Plasma (test code = 1798-8) [facility] Hospital[facility] [Enzymatic activity/volume] in Serum or Plasma 2021-06-06 00:00:00 Test Item Value Reference Range Interpretation Comments lipase (test code = lipase) 18 U/L 13-60 [facility] HospitalNoninvasive colorectal cancer DNA and occult blood screening [Presence] in [id number] 16:00:00 Test Item Value Reference Range Interpretation Comments cologuard result reportable (test positive negative A code = cologuard result reportable) [facility] HospitalUrinalysis complete W Reflex Culture panel - Urine 2021-05-15 08:50:00 Test Item Value Reference Range Interpretation Comments Color of Urine by Auto (test yellow code = 73977-8) Appearance of Urine (test code clear clear = 5767-9) Glucose [Presence] in Urine by negative negative Automated test strip (test code = 38134-6) Bilirubin.total [Mass/volume] negative negative in Urine (test code = 1978-6) Ketones [Mass/volume] in Urine negative negative by Automated test strip (test code = 08209-2) Specific gravity of Urine by 1.017 1.003-1.030 Automated test strip (test code = 60531-7) blood urine (test code = blood negative negative urine) pH of Urine (test code = 5.500 5-9 2756-5) protein urine (UA) (test code = trace negative protein urine (UA)) Urobilinogen [Presence] in normal 0.2-1.0 Urine (test code = 71825-0) Nitrite [Presence] in Urine by negative negative Test strip (test code = 5802-4) Leukocyte esterase [Presence] negative negative in Urine by Automated test strip (test code = 59308-6) Erythrocytes [#/volume] in =1-5 0-5 Urine by Automated count (test code = 798-9) Leukocytes [#/area] in Urine =1-5 0-5 sediment by Automated count (test code = 62307-6) Epithelial cells [Presence] in =1-5 0-5 Urine sediment by Light microscopy (test code = 34251-3) Bacteria identified in Urine by none detected none detect Culture (test code = 630-4) Casts [#/area] in Urine =11-14 none detect H sediment by Automated count (test code = 02471-7) urine culture added? (test code no = urine culture added?) [facility] W Auto Differential panel - [id number] 08:50:00 Test Item Value Reference Range Interpretation Comments white blood count (test code = 5.7 K/uL 4.0-12.3 white blood count) red blood count (test code = red 4.89 M/uL 3.80-5.80 blood count) hemoglobin (test code = 16.6 g/dL 11.7-17.2 hemoglobin) hematocrit (test code = 48.4 % 35.0-51.0 hematocrit) MCV [Entitic volume] (test code = 99.0 fL 83-100 56190-4) mean corpuscular hemoglobin (test 33.9 pg 26.8-33.4 H code = mean corpuscular hemoglobin) mean corpuscular HGB conc (test 34.3 g/dL 30-35 code = mean corpuscular HGB conc) red cell distribution width (test 12.4 % 12.0-14.0 code = red cell distribution width) platelet count (test code = 128 K/uL 175-450 L platelet count) mean platelet volume (test code = 10.1 fL 9.4-12.6 mean platelet volume) Segmented neutrophils/100 60.3 % 44.7-82.4 leukocytes in Blood (test code = 41609-3) Immature granulocytes [#/volume] 0.0 K/uL 0.0-0.03 in Blood (test code = 37761-7) lymphocyte% (test code = 20.9 % 10.0-50.0 lymphocyte%) mono % (test code = mono %) 9.2 % 3.9-13.4 eos % (test code = eos %) 7.7 % 0.0-6.4 H Basophils/100 leukocytes in 1.7 % 0.2-1.2 H Unspecified specimen (test code = 31311-9) Band form neutrophils [#/volume] 3.46 K/uL 1.78-5.38 in Blood (test code = 65518-4) Lymphocytes [#/volume] in 1.2 K/uL 1.32-3.57 L Unspecified specimen by Automated count (test code = 85191-3) mono # (test code = mono #) 0.53 K/uL 0.30-0.82 eos # (test code = eos #) 0.44 K/uL 0.04-0.54 basophil # (test code = basophil 0.10 K/uL 0.01-0.08 H #) NRBC% (test code = NRBC%) 0 /100 WBC 0-0.2 NRBC# (test code = NRBC#) 0 K/uL [facility] or Plasma 2021-05-15 08:50:00 Test Item Value Reference Range Interpretation Comments glucose (test code = glucose) 80 mg/dL 82-115 L Urea nitrogen [Mass/volume] in 7 mg/dL 8-23 L Serum or Plasma (test code = 3094-0) osmolality calculated,serum (test 265 mOsm/kg 280-300 L code = osmolality calculated,serum) creatinine (test code = 0.8 mg/dL 0.70-1.20 creatinine) glomerular filtration rate (test >60.00 code = glomerular filtration rate) Urea nitrogen/Creatinine [Mass 8.8 12-20 L Ratio] in Serum or Plasma (test code = 3097-3) sodium level (test code = sodium 134 mmol/L 135-145 L level) Potassium [Moles/volume] in Body 5.0 mmol/L 3.5-5.2 fluid (test code = 2821-7) chloride level (test code = 97 mmol/L 98-108 L chloride level) CO2 (test code = CO2) 27 mmol/L 21-32 anion gap (test code = anion gap) 15.0 mEq/L 12-20 calcium level (test code = 9.2 mg/dL 8.8-10.2 calcium level) total protein (test code = total 7.7 g/dL 6.6-8.7 protein) albumin (test code = albumin) 4.1 g/dL 3.5-5.2 globulin (test code = globulin) 3.6 gm/dL A/G ratio (test code = A/G ratio) 1.1 >1.0 bilirubin,total (test code = 0.8 mg/dL 0.0-1.2 bilirubin,total) AST/SGOT (test code = AST/SGOT) 26 U/L 15-40 Alanine aminotransferase 12 U/L 0-41 [Enzymatic activity/volume] in Serum or Plasma (test code = 1742-6) Alkaline phosphatase [Enzymatic 69 U/L 40-130 activity/volume] in Serum or Plasma (test code = 6768-6) [facility] or [id number] 08:50:00 Test Item Value Reference Range Interpretation Comments cholesterol level (test code = 173 mg/dL 150-200 cholesterol level) triglycerides level (test code = 88 mg/dL <150 triglycerides level) HDL cholesterol (test code = HDL 54 mg/dL >55 L cholesterol) LDL cholesterol direct (test code = 104 mg/dL <100 H LDL cholesterol direct) cholesterol risk ratio (test code = 3.203 cholesterol risk ratio) [facility] - Urine 2021-05-15 08:50:00 Test Item Value Reference Range Interpretation Comments Color of Urine by Auto (test yellow code = 85855-8) Appearance of Urine (test code clear clear = 5767-9) Glucose [Presence] in Urine by negative negative Automated test strip (test code = 18121-4) Bilirubin.total [Mass/volume] negative negative in Urine (test code = 1978-6) Ketones [Mass/volume] in Urine negative negative by Automated test strip (test code = 75695-3) Specific gravity of Urine by 1.017 1.003-1.030 Automated test strip (test code = 65389-9) blood urine (test code = blood negative negative urine) pH of Urine (test code = 5.500 5-9 2756-5) protein urine (UA) (test code = trace negative protein urine (UA)) Urobilinogen [Presence] in normal 0.2-1.0 Urine (test code = 79009-3) Nitrite [Presence] in Urine by negative negative Test strip (test code = 5802-4) Leukocyte esterase [Presence] negative negative in Urine by Automated test strip (test code = 53838-9) Erythrocytes [#/volume] in =1-5 0-5 Urine by Automated count (test code = 798-9) Leukocytes [#/area] in Urine =1-5 0-5 sediment by Automated count (test code = 35881-7) Epithelial cells [Presence] in =1-5 0-5 Urine sediment by Light microscopy (test code = 83512-2) Bacteria identified in Urine by none detected none detect Culture (test code = 630-4) Casts [#/area] in Urine =11-14 none detect H sediment by Automated count (test code = 59095-3) urine culture added? (test code no = urine culture added?) [facility] W Auto Differential panel - [id number] 08:50:00 Test Item Value Reference Range Interpretation Comments white blood count (test code = 5.7 K/uL 4.0-12.3 white blood count) red blood count (test code = red 4.89 M/uL 3.80-5.80 blood count) hemoglobin (test code = 16.6 g/dL 11.7-17.2 hemoglobin) hematocrit (test code = 48.4 % 35.0-51.0 hematocrit) MCV [Entitic volume] (test code = 99.0 fL 83-100 88688-1) mean corpuscular hemoglobin (test 33.9 pg 26.8-33.4 H code = mean corpuscular hemoglobin) mean corpuscular HGB conc (test 34.3 g/dL 30-35 code = mean corpuscular HGB conc) red cell distribution width (test 12.4 % 12.0-14.0 code = red cell distribution width) platelet count (test code = 128 K/uL 175-450 L platelet count) mean platelet volume (test code = 10.1 fL 9.4-12.6 mean platelet volume) Segmented neutrophils/100 60.3 % 44.7-82.4 leukocytes in Blood (test code = 12331-0) Immature granulocytes [#/volume] 0.0 K/uL 0.0-0.03 in Blood (test code = 21121-1) lymphocyte% (test code = 20.9 % 10.0-50.0 lymphocyte%) mono % (test code = mono %) 9.2 % 3.9-13.4 eos % (test code = eos %) 7.7 % 0.0-6.4 H Basophils/100 leukocytes in 1.7 % 0.2-1.2 H Unspecified specimen (test code = 60740-2) Band form neutrophils [#/volume] 3.46 K/uL 1.78-5.38 in Blood (test code = 56887-1) Lymphocytes [#/volume] in 1.2 K/uL 1.32-3.57 L Unspecified specimen by Automated count (test code = 25675-8) mono # (test code = mono #) 0.53 K/uL 0.30-0.82 eos # (test code = eos #) 0.44 K/uL 0.04-0.54 basophil # (test code = basophil 0.10 K/uL 0.01-0.08 H #) NRBC% (test code = NRBC%) 0 /100 WBC 0-0.2 NRBC# (test code = NRBC#) 0 K/uL [facility] - [facility] or Plasma 2021-05-15 08:50:00 Test Item Value Reference Range Interpretation Comments glucose (test code = glucose) 80 mg/dL 82-115 L Urea nitrogen [Mass/volume] in 7 mg/dL 8-23 L Serum or Plasma (test code = 3094-0) osmolality calculated,serum (test 265 mOsm/kg 280-300 L code = osmolality calculated,serum) creatinine (test code = 0.8 mg/dL 0.70-1.20 creatinine) glomerular filtration rate (test >60.00 code = glomerular filtration rate) Urea nitrogen/Creatinine [Mass 8.8 12-20 L Ratio] in Serum or Plasma (test code = 3097-3) sodium level (test code = sodium 134 mmol/L 135-145 L level) Potassium [Moles/volume] in Body 5.0 mmol/L 3.5-5.2 fluid (test code = 2821-7) chloride level (test code = 97 mmol/L 98-108 L chloride level) CO2 (test code = CO2) 27 mmol/L 21-32 anion gap (test code = anion gap) 15.0 mEq/L 12-20 calcium level (test code = 9.2 mg/dL 8.8-10.2 calcium level) total protein (test code = total 7.7 g/dL 6.6-8.7 protein) albumin (test code = albumin) 4.1 g/dL 3.5-5.2 globulin (test code = globulin) 3.6 gm/dL A/G ratio (test code = A/G ratio) 1.1 >1.0 bilirubin,total (test code = 0.8 mg/dL 0.0-1.2 bilirubin,total) AST/SGOT (test code = AST/SGOT) 26 U/L 15-40 Alanine aminotransferase 12 U/L 0-41 [Enzymatic activity/volume] in Serum or Plasma (test code = 1742-6) Alkaline phosphatase [Enzymatic 69 U/L 40-130 activity/volume] in Serum or Plasma (test code = 6768-6) [facility] - [facility] or [id number] 08:50:00 Test Item Value Reference Range Interpretation Comments cholesterol level (test code = 173 mg/dL 150-200 cholesterol level) triglycerides level (test code = 88 mg/dL <150 triglycerides level) HDL cholesterol (test code = HDL 54 mg/dL >55 L cholesterol) LDL cholesterol direct (test code = 104 mg/dL <100 H LDL cholesterol direct) cholesterol risk ratio (test code = 3.203 cholesterol risk ratio) [facility] - Urine 2021-05-15 08:50:00 Test Item Value Reference Range Interpretation Comments Color of Urine by Auto (test yellow code = 99235-8) Appearance of Urine (test code clear clear = 5767-9) Glucose [Presence] in Urine by negative negative Automated test strip (test code = 32948-8) Bilirubin.total [Mass/volume] negative negative in Urine (test code = 1978-6) Ketones [Mass/volume] in Urine negative negative by Automated test strip (test code = 56410-1) Specific gravity of Urine by 1.017 1.003-1.030 Automated test strip (test code = 60494-6) blood urine (test code = blood negative negative urine) pH of Urine (test code = 5.500 5-9 2756-5) protein urine (UA) (test code = trace negative protein urine (UA)) Urobilinogen [Presence] in normal 0.2-1.0 Urine (test code = 85166-9) Nitrite [Presence] in Urine by negative negative Test strip (test code = 5802-4) Leukocyte esterase [Presence] negative negative in Urine by Automated test strip (test code = 59900-0) Erythrocytes [#/volume] in =1-5 0-5 Urine by Automated count (test code = 798-9) Leukocytes [#/area] in Urine =1-5 0-5 sediment by Automated count (test code = 10941-3) Epithelial cells [Presence] in =1-5 0-5 Urine sediment by Light microscopy (test code = 12183-6) Bacteria identified in Urine by none detected none detect Culture (test code = 630-4) Casts [#/area] in Urine =11-14 none detect H sediment by Automated count (test code = 56720-9) urine culture added? (test code no = urine culture added?) [facility] W Auto Differential panel - [id number] 08:50:00 Test Item Value Reference Range Interpretation Comments white blood count (test code = 5.7 K/uL 4.0-12.3 white blood count) red blood count (test code = red 4.89 M/uL 3.80-5.80 blood count) hemoglobin (test code = 16.6 g/dL 11.7-17.2 hemoglobin) hematocrit (test code = 48.4 % 35.0-51.0 hematocrit) MCV [Entitic volume] (test code = 99.0 fL 83-100 37695-4) mean corpuscular hemoglobin (test 33.9 pg 26.8-33.4 H code = mean corpuscular hemoglobin) mean corpuscular HGB conc (test 34.3 g/dL 30-35 code = mean corpuscular HGB conc) red cell distribution width (test 12.4 % 12.0-14.0 code = red cell distribution width) platelet count (test code = 128 K/uL 175-450 L platelet count) mean platelet volume (test code = 10.1 fL 9.4-12.6 mean platelet volume) Segmented neutrophils/100 60.3 % 44.7-82.4 leukocytes in Blood (test code = 95940-5) Immature granulocytes [#/volume] 0.0 K/uL 0.0-0.03 in Blood (test code = 40489-6) lymphocyte% (test code = 20.9 % 10.0-50.0 lymphocyte%) mono % (test code = mono %) 9.2 % 3.9-13.4 eos % (test code = eos %) 7.7 % 0.0-6.4 H Basophils/100 leukocytes in 1.7 % 0.2-1.2 H Unspecified specimen (test code = 72688-9) Band form neutrophils [#/volume] 3.46 K/uL 1.78-5.38 in Blood (test code = 22436-1) Lymphocytes [#/volume] in 1.2 K/uL 1.32-3.57 L Unspecified specimen by Automated count (test code = 41870-3) mono # (test code = mono #) 0.53 K/uL 0.30-0.82 eos # (test code = eos #) 0.44 K/uL 0.04-0.54 basophil # (test code = basophil 0.10 K/uL 0.01-0.08 H #) NRBC% (test code = NRBC%) 0 /100 WBC 0-0.2 NRBC# (test code = NRBC#) 0 K/uL [facility] or Plasma 2021-05-15 08:50:00 Test Item Value Reference Range Interpretation Comments glucose (test code = glucose) 80 mg/dL 82-115 L Urea nitrogen [Mass/volume] in 7 mg/dL 8-23 L Serum or Plasma (test code = 3094-0) osmolality calculated,serum (test 265 mOsm/kg 280-300 L code = osmolality calculated,serum) creatinine (test code = 0.8 mg/dL 0.70-1.20 creatinine) glomerular filtration rate (test >60.00 code = glomerular filtration rate) Urea nitrogen/Creatinine [Mass 8.8 12-20 L Ratio] in Serum or Plasma (test code = 3097-3) sodium level (test code = sodium 134 mmol/L 135-145 L level) Potassium [Moles/volume] in Body 5.0 mmol/L 3.5-5.2 fluid (test code = 2821-7) chloride level (test code = 97 mmol/L 98-108 L chloride level) CO2 (test code = CO2) 27 mmol/L 21-32 anion gap (test code = anion gap) 15.0 mEq/L 12-20 calcium level (test code = 9.2 mg/dL 8.8-10.2 calcium level) total protein (test code = total 7.7 g/dL 6.6-8.7 protein) albumin (test code = albumin) 4.1 g/dL 3.5-5.2 globulin (test code = globulin) 3.6 gm/dL A/G ratio (test code = A/G ratio) 1.1 >1.0 bilirubin,total (test code = 0.8 mg/dL 0.0-1.2 bilirubin,total) AST/SGOT (test code = AST/SGOT) 26 U/L 15-40 Alanine aminotransferase 12 U/L 0-41 [Enzymatic activity/volume] in Serum or Plasma (test code = 1742-6) Alkaline phosphatase [Enzymatic 69 U/L 40-130 activity/volume] in Serum or Plasma (test code = 6768-6) [facility] or [id number] 08:50:00 Test Item Value Reference Range Interpretation Comments cholesterol level (test code = 173 mg/dL 150-200 cholesterol level) triglycerides level (test code = 88 mg/dL <150 triglycerides level) HDL cholesterol (test code = HDL 54 mg/dL >55 L cholesterol) LDL cholesterol direct (test code = 104 mg/dL <100 H LDL cholesterol direct) cholesterol risk ratio (test code = 3.203 cholesterol risk ratio) [facility] - Urine 2021-05-15 08:50:00 Test Item Value Reference Range Interpretation Comments Color of Urine by Auto (test yellow code = 14143-6) Appearance of Urine (test code clear clear = 5767-9) Glucose [Presence] in Urine by negative negative Automated test strip (test code = 59320-2) Bilirubin.total [Mass/volume] negative negative in Urine (test code = 1978-6) Ketones [Mass/volume] in Urine negative negative by Automated test strip (test code = 79681-2) Specific gravity of Urine by 1.017 1.003-1.030 Automated test strip (test code = 74311-8) blood urine (test code = blood negative negative urine) pH of Urine (test code = 5.500 5-9 2756-5) protein urine (UA) (test code = trace negative protein urine (UA)) Urobilinogen [Presence] in normal 0.2-1.0 Urine (test code = 23115-0) Nitrite [Presence] in Urine by negative negative Test strip (test code = 5802-4) Leukocyte esterase [Presence] negative negative in Urine by Automated test strip (test code = 66179-8) Erythrocytes [#/volume] in =1-5 0-5 Urine by Automated count (test code = 798-9) Leukocytes [#/area] in Urine =1-5 0-5 sediment by Automated count (test code = 77417-5) Epithelial cells [Presence] in =1-5 0-5 Urine sediment by Light microscopy (test code = 03100-1) Bacteria identified in Urine by none detected none detect Culture (test code = 630-4) Casts [#/area] in Urine =11-14 none detect H sediment by Automated count (test code = 32608-2) urine culture added? (test code no = urine culture added?) [facility] W Auto Differential panel - [id number] 08:50:00 Test Item Value Reference Range Interpretation Comments white blood count (test code = 5.7 K/uL 4.0-12.3 white blood count) red blood count (test code = red 4.89 M/uL 3.80-5.80 blood count) hemoglobin (test code = 16.6 g/dL 11.7-17.2 hemoglobin) hematocrit (test code = 48.4 % 35.0-51.0 hematocrit) MCV [Entitic volume] (test code = 99.0 fL 83-100 72588-0) mean corpuscular hemoglobin (test 33.9 pg 26.8-33.4 H code = mean corpuscular hemoglobin) mean corpuscular HGB conc (test 34.3 g/dL 30-35 code = mean corpuscular HGB conc) red cell distribution width (test 12.4 % 12.0-14.0 code = red cell distribution width) platelet count (test code = 128 K/uL 175-450 L platelet count) mean platelet volume (test code = 10.1 fL 9.4-12.6 mean platelet volume) Segmented neutrophils/100 60.3 % 44.7-82.4 leukocytes in Blood (test code = 31317-8) Immature granulocytes [#/volume] 0.0 K/uL 0.0-0.03 in Blood (test code = 80556-1) lymphocyte% (test code = 20.9 % 10.0-50.0 lymphocyte%) mono % (test code = mono %) 9.2 % 3.9-13.4 eos % (test code = eos %) 7.7 % 0.0-6.4 H Basophils/100 leukocytes in 1.7 % 0.2-1.2 H Unspecified specimen (test code = 30488-5) Band form neutrophils [#/volume] 3.46 K/uL 1.78-5.38 in Blood (test code = 62348-3) Lymphocytes [#/volume] in 1.2 K/uL 1.32-3.57 L Unspecified specimen by Automated count (test code = 08575-3) mono # (test code = mono #) 0.53 K/uL 0.30-0.82 eos # (test code = eos #) 0.44 K/uL 0.04-0.54 basophil # (test code = basophil 0.10 K/uL 0.01-0.08 H #) NRBC% (test code = NRBC%) 0 /100 WBC 0-0.2 NRBC# (test code = NRBC#) 0 K/uL [facility] - [facility] or Plasma 2021-05-15 08:50:00 Test Item Value Reference Range Interpretation Comments glucose (test code = glucose) 80 mg/dL 82-115 L Urea nitrogen [Mass/volume] in 7 mg/dL 8-23 L Serum or Plasma (test code = 3094-0) osmolality calculated,serum (test 265 mOsm/kg 280-300 L code = osmolality calculated,serum) creatinine (test code = 0.8 mg/dL 0.70-1.20 creatinine) glomerular filtration rate (test >60.00 code = glomerular filtration rate) Urea nitrogen/Creatinine [Mass 8.8 12-20 L Ratio] in Serum or Plasma (test code = 3097-3) sodium level (test code = sodium 134 mmol/L 135-145 L level) Potassium [Moles/volume] in Body 5.0 mmol/L 3.5-5.2 fluid (test code = 2821-7) chloride level (test code = 97 mmol/L 98-108 L chloride level) CO2 (test code = CO2) 27 mmol/L 21-32 anion gap (test code = anion gap) 15.0 mEq/L 12-20 calcium level (test code = 9.2 mg/dL 8.8-10.2 calcium level) total protein (test code = total 7.7 g/dL 6.6-8.7 protein) albumin (test code = albumin) 4.1 g/dL 3.5-5.2 globulin (test code = globulin) 3.6 gm/dL A/G ratio (test code = A/G ratio) 1.1 >1.0 bilirubin,total (test code = 0.8 mg/dL 0.0-1.2 bilirubin,total) AST/SGOT (test code = AST/SGOT) 26 U/L 15-40 Alanine aminotransferase 12 U/L 0-41 [Enzymatic activity/volume] in Serum or Plasma (test code = 1742-6) Alkaline phosphatase [Enzymatic 69 U/L 40-130 activity/volume] in Serum or Plasma (test code = 6768-6) [facility] - [facility] or [id number] 08:50:00 Test Item Value Reference Range Interpretation Comments cholesterol level (test code = 173 mg/dL 150-200 cholesterol level) triglycerides level (test code = 88 mg/dL <150 triglycerides level) HDL cholesterol (test code = HDL 54 mg/dL >55 L cholesterol) LDL cholesterol direct (test code = 104 mg/dL <100 H LDL cholesterol direct) cholesterol risk ratio (test code = 3.203 cholesterol risk ratio) [facility] - Urine 2021-05-15 08:50:00 Test Item Value Reference Range Interpretation Comments Color of Urine by Auto (test yellow code = 68859-2) Appearance of Urine (test code clear clear = 5767-9) Glucose [Presence] in Urine by negative negative Automated test strip (test code = 23857-0) Bilirubin.total [Mass/volume] negative negative in Urine (test code = 1978-6) Ketones [Mass/volume] in Urine negative negative by Automated test strip (test code = 36983-3) Specific gravity of Urine by 1.017 1.003-1.030 Automated test strip (test code = 63466-9) blood urine (test code = blood negative negative urine) pH of Urine (test code = 5.500 5-9 2756-5) protein urine (UA) (test code = trace negative protein urine (UA)) Urobilinogen [Presence] in normal 0.2-1.0 Urine (test code = 02418-3) Nitrite [Presence] in Urine by negative negative Test strip (test code = 5802-4) Leukocyte esterase [Presence] negative negative in Urine by Automated test strip (test code = 60992-4) Erythrocytes [#/volume] in =1-5 0-5 Urine by Automated count (test code = 798-9) Leukocytes [#/area] in Urine =1-5 0-5 sediment by Automated count (test code = 24919-7) Epithelial cells [Presence] in =1-5 0-5 Urine sediment by Light microscopy (test code = 38867-9) Bacteria identified in Urine by none detected none detect Culture (test code = 630-4) Casts [#/area] in Urine =11-14 none detect H sediment by Automated count (test code = 27279-9) urine culture added? (test code no = urine culture added?) [facility] W Auto Differential panel - [id number] 08:50:00 Test Item Value Reference Range Interpretation Comments white blood count (test code = 5.7 K/uL 4.0-12.3 white blood count) red blood count (test code = red 4.89 M/uL 3.80-5.80 blood count) hemoglobin (test code = 16.6 g/dL 11.7-17.2 hemoglobin) hematocrit (test code = 48.4 % 35.0-51.0 hematocrit) MCV [Entitic volume] (test code = 99.0 fL 83-100 68973-4) mean corpuscular hemoglobin (test 33.9 pg 26.8-33.4 H code = mean corpuscular hemoglobin) mean corpuscular HGB conc (test 34.3 g/dL 30-35 code = mean corpuscular HGB conc) red cell distribution width (test 12.4 % 12.0-14.0 code = red cell distribution width) platelet count (test code = 128 K/uL 175-450 L platelet count) mean platelet volume (test code = 10.1 fL 9.4-12.6 mean platelet volume) Segmented neutrophils/100 60.3 % 44.7-82.4 leukocytes in Blood (test code = 47178-8) Immature granulocytes [#/volume] 0.0 K/uL 0.0-0.03 in Blood (test code = 36032-2) lymphocyte% (test code = 20.9 % 10.0-50.0 lymphocyte%) mono % (test code = mono %) 9.2 % 3.9-13.4 eos % (test code = eos %) 7.7 % 0.0-6.4 H Basophils/100 leukocytes in 1.7 % 0.2-1.2 H Unspecified specimen (test code = 47433-7) Band form neutrophils [#/volume] 3.46 K/uL 1.78-5.38 in Blood (test code = 52099-0) Lymphocytes [#/volume] in 1.2 K/uL 1.32-3.57 L Unspecified specimen by Automated count (test code = 43575-3) mono # (test code = mono #) 0.53 K/uL 0.30-0.82 eos # (test code = eos #) 0.44 K/uL 0.04-0.54 basophil # (test code = basophil 0.10 K/uL 0.01-0.08 H #) NRBC% (test code = NRBC%) 0 /100 WBC 0-0.2 NRBC# (test code = NRBC#) 0 K/uL [facility] - [facility] or Plasma 2021-05-15 08:50:00 Test Item Value Reference Range Interpretation Comments glucose (test code = glucose) 80 mg/dL 82-115 L Urea nitrogen [Mass/volume] in 7 mg/dL 8-23 L Serum or Plasma (test code = 3094-0) osmolality calculated,serum (test 265 mOsm/kg 280-300 L code = osmolality calculated,serum) creatinine (test code = 0.8 mg/dL 0.70-1.20 creatinine) glomerular filtration rate (test >60.00 code = glomerular filtration rate) Urea nitrogen/Creatinine [Mass 8.8 12-20 L Ratio] in Serum or Plasma (test code = 3097-3) sodium level (test code = sodium 134 mmol/L 135-145 L level) Potassium [Moles/volume] in Body 5.0 mmol/L 3.5-5.2 fluid (test code = 2821-7) chloride level (test code = 97 mmol/L 98-108 L chloride level) CO2 (test code = CO2) 27 mmol/L 21-32 anion gap (test code = anion gap) 15.0 mEq/L 12-20 calcium level (test code = 9.2 mg/dL 8.8-10.2 calcium level) total protein (test code = total 7.7 g/dL 6.6-8.7 protein) albumin (test code = albumin) 4.1 g/dL 3.5-5.2 globulin (test code = globulin) 3.6 gm/dL A/G ratio (test code = A/G ratio) 1.1 >1.0 bilirubin,total (test code = 0.8 mg/dL 0.0-1.2 bilirubin,total) AST/SGOT (test code = AST/SGOT) 26 U/L 15-40 Alanine aminotransferase 12 U/L 0-41 [Enzymatic activity/volume] in Serum or Plasma (test code = 1742-6) Alkaline phosphatase [Enzymatic 69 U/L 40-130 activity/volume] in Serum or Plasma (test code = 6768-6) [facility] - [facility] or [id number] 08:50:00 Test Item Value Reference Range Interpretation Comments cholesterol level (test code = 173 mg/dL 150-200 cholesterol level) triglycerides level (test code = 88 mg/dL <150 triglycerides level) HDL cholesterol (test code = HDL 54 mg/dL >55 L cholesterol) LDL cholesterol direct (test code = 104 mg/dL <100 H LDL cholesterol direct) cholesterol risk ratio (test code = 3.203 cholesterol risk ratio) [facility], method unspecified - [id number] 00:00:00NeutrophilsBandLymphocyteAtypical LymphMonocyteEosinophilBasophilMetamyelocyteMyelocyteAbs Neutrophil Count (Man)Abs Lymph Count (Man)Abs Monocyte Count (Man)Abs Eosinophil Count (Man)Abs Basophil Count (Man)Platelet EstimatePlatelet MorphologyPoikilocytosisAnisocytosisMicrocytosisMacrocytosisTarget CellsTear Drop CellsOvalocytesToxic GranulationBurr CellsRouleauMagoLackey Memorial Hospital Hemoglobin A1c [Mass/volume] in [id number] 00:00:00 Test Item Value Reference Range Interpretation Comments Hemoglobin A1c [Mass/volume] in Blood 5.1 % 4.0-6.0 (test code = 77634-4) [facility] HospitalThyrotropin [Units/volume] in Serum or [id number] 00:00:00 Test Item Value Reference Range Interpretation Comments Thyrotropin [Units/volume] in 1.46 uIU/mL 0.36-3.74 Serum or Plasma (test code = 3016-3) [facility], method unspecified - [id number] 00:00:00NeutrophilsBandLymphocyteAtypical LymphMonocyteEosinophilBasophilMetamyelocyteMyelocyteAbs Neutrophil Count (Man)Abs Lymph Count (Man)Abs Monocyte Count (Man)Abs Eosinophil Count (Man)Abs Basophil Count (Man)Platelet EstimatePlatelet MorphologyPoikilocytosisAnisocytosisMicrocytosisMacrocytosisTarget CellsTear Drop CellsOvalocytesToxic GranulationBurr [facility] Hemoglobin A1c [Mass/volume] in [id number] 00:00:00 Test Item Value Reference Range Interpretation Comments Hemoglobin A1c [Mass/volume] in Blood 5.1 % 4.0-6.0 (test code = 20894-5) [facility]/volume] in Serum or [id number] 00:00:00 Test Item Value Reference Range Interpretation Comments Thyrotropin [Units/volume] in 1.46 uIU/mL 0.36-3.74 Serum or Plasma (test code = 3016-3) [facility], method unspecified - [id number] 00:00:00NeutrophilsBandLymphocyteAtypical LymphMonocyteEosinophilBasophilMetamyelocyteMyelocyteAbs Neutrophil Count (Man)Abs Lymph Count (Man)Abs Monocyte Count (Man)Abs Eosinophil Count (Man)Abs Basophil Count (Man)Platelet EstimatePlatelet MorphologyPoikilocytosisAnisocytosisMicrocytosisMacrocytosisTarget CellsTear Drop CellsOvalocytesToxic GranulationBurr [facility] Hemoglobin A1c [Mass/volume] in [id number] 00:00:00 Test Item Value Reference Range Interpretation Comments Hemoglobin A1c [Mass/volume] in Blood 5.1 % 4.0-6.0 (test code = 62549-9) [facility] [Units/volume] in Serum or [id number] 00:00:00 Test Item Value Reference Range Interpretation Comments Thyrotropin [Units/volume] in 1.46 uIU/mL 0.36-3.74 Serum or Plasma (test code = 3016-3) [facility], method unspecified - [id number] 00:00:00NeutrophilsBandLymphocyteAtypical LymphMonocyteEosinophilBasophilMetamyelocyteMyelocyteAbs Neutrophil Count (Man)Abs Lymph Count (Man)Abs Monocyte Count (Man)Abs Eosinophil Count (Man)Abs Basophil Count (Man)Platelet EstimatePlatelet MorphologyPoikilocytosisAnisocytosisMicrocytosisMacrocytosisTarget CellsTear Drop CellsOvalocytesToxic GranulationBurr [facility] Hemoglobin A1c [Mass/volume] in [id number] 00:00:00 Test Item Value Reference Range Interpretation Comments Hemoglobin A1c [Mass/volume] in Blood 5.1 % 4.0-6.0 (test code = 12917-7) [facility] [Units/volume] in Serum or [id number] 00:00:00 Test Item Value Reference Range Interpretation Comments Thyrotropin [Units/volume] in 1.46 uIU/mL 0.36-3.74 Serum or Plasma (test code = 3016-3) [facility], method unspecified - [id number] 00:00:00NeutrophilsBandLymphocyteAtypical LymphMonocyteEosinophilBasophilMetamyelocyteMyelocyteAbs Neutrophil Count (Man)Abs Lymph Count (Man)Abs Monocyte Count (Man)Abs Eosinophil Count (Man)Abs Basophil Count (Man)Platelet EstimatePlatelet MorphologyPoikilocytosisAnisocytosisMicrocytosisMacrocytosisTarget CellsTear Drop CellsOvalocytesToxic GranulationBurr [facility] Hemoglobin A1c [Mass/volume] in [id number] 00:00:00 Test Item Value Reference Range Interpretation Comments Hemoglobin A1c [Mass/volume] in Blood 5.1 % 4.0-6.0 (test code = 81996-8) [facility] HospitalTh[facility]rop[facility] [Units/volume] in Serum or [id number] 00:00:00 Test Item Value Reference Range Interpretation Comments Thyrotropin [Units/volume] in 1.46 uIU/mL 0.36-3.74 Serum or Plasma (test code = 3016-3) [facility]"
[2022-05-27 17:23] VITALS: BMI 17.6
[2022-05-27] MEDS ORDERED: HEPARIN 5000 UNIT/ML 1 ML VIAL SQ SCH (20:00)
[2022-05-27] MEDS: FAMOTIDINE 20 MG TAB PO SCH (20:15)
[2022-05-27] MEDS: ATORVASTATIN 40 MG TAB PO SCH (20:15)
[2022-05-28 05:29] LABS: Absolute Lymphocytes (CBC) 1.5 K/uL (0.7-4.9); Hematocrit 38.9 % (39.6-49.0); Lymphocytes % 17.2 % (15.3-44.8); MCV 89.7 fL (80-100); RBC Red Blood Cell Count 4.33 M/uL (4.33-5.43)
[2022-05-28 05:48] LABS: Albumin 3.1 g/dL (3.4-5.0); Magnesium 1.8 mg/dL (1.6-2.4); Potassium 3.9 mmol/L (3.5-5.1); Prealbumin 18.6 mg/dL (20-40)
[2022-05-28] MEDS: CLOPIDOGREL 75 MG TABLET PO SCH ×2 (08:00→08:44)
[2022-05-28] MEDS ORDERED: INFLUENZA VACCINE (for 6+ mo) 0.5 ML DOSE IMVAC ONE (08:00)
[2022-05-28] MEDS ORDERED: PNEUMOCOCCAL VACCINE 0.5 ML IMVAC ONE (08:00)
[2022-05-28] MEDS: FOLIC ACID 1 MG TABLET PO SCH (08:43)
[2022-05-28] MEDS: THIAMINE HCL 100 MG TABLET PO SCH (08:43)
[2022-05-28] MEDS: SENOSIDES 8.6 MG TAB PO SCH (08:43)
[2022-05-28] MEDS: ASPIRIN 81 MG CHEWABLE TABLET PO SCH (08:43)
[2022-05-28] MEDS: APIXABAN 2.5 MG TABLET PO SCH ×2 (08:43→19:50)
[2022-05-28] MEDS: FAMOTIDINE 20 MG TAB PO SCH ×2 (08:43→19:50)
[2022-05-28] MEDS: NYSTATIN PWDR 100000 UNIT/GM TOP SCH ×2 (12:01→19:49)
[2022-05-28] MEDS: LIDOCAINE 4% PATCH TOP SCH (14:35)
--- NOTE | 2022-05-28 16:43 | HP ---
Date of Admission: 05/27/2022 Time Of Service: 6:00 p.m. Chief Complaint: Stroke. History Of Present Illness: Mr. Rodríguez is a 67-year-old, right-handed, patient with a hist ory of alcoholism, tobacco use, prior ischemic strokes, hypertension, abdominal aortic aneurysm, who initially presented at an outside hospital on May 07, 2022, after falling where he tripped and f ell on a hard surface. He hit the right side, went to the emergency room and evaluation identified a proximal right humeral fracture and possible hip fracture along with multiple rib fractures. He was put in a sling and had conservative treatment. He came back on the May 19, 2022, with difficulty speaking and dysphagia along with some right hemifield deficit, right hemineglect, and inattention a nd was identified to have a left subclavian thrombus, proximal left MCA occlusion, and was transferre d to [facility] in [place] for higher level of care. Head CT scan showed chronic strokes in the right MC A distribution. CT angiogram showed extensive bilateral carotid siphon calcifications. He was out o f the window for TNKs and was treated conservatively including aspirin, Plavix, Lipitor, with neuro c hecks, continuous imaging and began physical, occupational, and speech therapy. He was put nonweight bearing in the right upper extremity because of fracture. He was in telemetry. He had a cardiac temitope luation and followup. As he was hospitalized, dysphagia, incoordination, right hemifield deficit and neglect, and possible rib fracture, which was not further elucidated. As a result of his comorbid c onditions and acute ischemic stroke, the patient is felt to be a more appropriate candidate for inoht ient rehabilitation and not outpatient therapy or group home facility. Past Medical History: As noted above. Past Surgical History: None. Imaging: His x-ray of the shoulder on 05/21/2022, identified a committed right proximal humeral frac ture and there was actually some displacement of the fracture on MRI, which was done on 05/21/2022. Brain MRI on 05/20/2022 showed a small subacute infarct scattered in the white matter in the right fr ontoparietal lobe and right insula and CT perfusion with contrast on May 20 showed hypoperfusion noted in the right MCA territory. Social History: The patient is actually a smoker and drinker. He did smell of urine at time of my e valuation. Family History: Noncontributory. Allergies: NO KNOWN DRUG ALLERGIES. Current Medications: Eliquis 2.5 mg twice daily, aspirin 81 mg daily, Lipitor 40 mg at bedtime, Plav ix 75 mg daily, Pepcid 20 mg twice daily, folic acid 1 mg daily, Nystatin powder apply topically to a reas appropriate twice daily, Senokot S 2 at night, thiamine 100 mg daily. Review of Systems: Patient does report some mild to moderate pain in the right humerus, which right arm is in the sling. He does report some reluctance to do exercises, but with encouragement is able to do that. Some mi ld difficulty with his vision and swallowing. Mild arthralgias and myalgias. No rash. No headaches . No active psychiatric issues. Laboratory Studies: Complete blood count with differential is essentially normal. White blood cell count 8.8, hemoglobin 13.3, platelets 228. Chemistries: Sodium 139, potassium 3.9, chloride 106, ca rbon dioxide 28, BUN 20, creatinine 0.87, glucose 134, calcium 8.7. Magnesium 1.3. Albumin 3.1, pre albumin 18.6. His COVID test is negative. Physical Examination: Vital Signs: Blood pressure 142/84, pulse 83, respiratory rate 18, temperature 97.1, oxygen saturati on 95%. Weight 127 pounds, height 5 feet, and BMI 17.7. General: Mr. Rodríguez is resting in bed. He appears somewhat disheveled, full maldonado, smells of urine. Otherwise, he is normocephalic. His right arm is in a sling. Otherwise atraumatic. HEENT: His sclerae appear anicteric. Oropharynx is moist. Poor dentition. Chest: Clear. Abdomen: Soft. Extremities: Show no significant edema or cyanosis. Neurologic: Alert and oriented to person, place, situation, and time. Follows commands appropriatel y. He appears to have some neglect in right visual field and some deficit there. Incoordination not ed as he moves the hands bilaterally. Strength cannot be fully assessed on the right because of the fracture. Appears to be moving the left side without significant weakness and bilateral lower extrem ities, no significant weakness noted there. Sensory exam appears symmetric. Gait, he will be ambula nestor with physical therapy. Current Level Of Functioning: Currently, for eating requires set up and clean up. For oral hygiene, moderate assistance. Toileting is dependent. Showering is dependent. Upper body dressing and lowe r body dressing and footwear are also dependent. For sit to stand, he is dependent. Toilet transfer s, dependent. He ambulated 2 feet with maximum assistance. Unable to do stairs. Does require const ant cues for deep breathing and energy conservation while working with physical therapist. Does lack some awareness and presents with decreased motor planning, decreased safety awareness. Rehabilitation Assessment And Plan: Mr. Rodríguez is a 67-year-old patient who appears to have strokes involving bilateral regions of his brain for acute and subacute strokes. He does have a right hemine glect or hemifield deficit, right-sided incoordination along with some diffuse weakness. He has a fr acture in the right humerus and it is in a sling and with nonweightbearing on that side. He has dysl ipidemia, hypertension, tobacco dependency, alcohol use, and abdominal aortic aneurysm. His etiologi c diagnosis is the rehabilitation impairment category is 01 stroke, his impairment group code 01.3, b ilateral involvement. The etiologic diagnosis is left MCA occlusion and also right MCA DISTRIBUTION COORDINATOR watershed infarcts. Active comorbidities includes dysphagia, hypertension, alcohol and tobacco abuse. Additi onal comorbidities: Right humeral fracture, left seventh and eighth lateral rib fractures, right hem ifield deficit, mild sensory disturbance and ataxia and hemiinattention. He does have risks of clini annamarie complications including skin breakdown, myocardial infarction, falls, fractures, injury, trauma, delirium tremors, alcohol withdrawal, and all the way to . Plan: He will have physical, occupational, and speech therapy 3.5 hours 5-7 days. For his alcohol u se and potential withdrawal, to be on thiamine, folic acid. Potentially, will be on Librium if need be. For potential constipation, he is on Senokot. For additional stroke risk, he is on aspirin and Plavix. For dyslipidemia, on Lipitor. For reflux, on Pepcid and will have Tylenol as needed for alfonso n. Melatonin as needed for sleep. Impact Of Comorbid Conditions: Given his right humeral fracture and his limitation of use of the rig ht hand in a right-handed patient. It will pose a mild challenge to his rehabilitation. However, we will be directed in the use of the left side to compensate for his balance, transfers, coordination, and dressing of lower body as well as his eating. He does have the risk of alcohol withdrawal, whic h is very low given he has not had a drink in about 2 weeks, and he is on thiamine and folic acid. H as a risk of deep vein thrombosis. He has been on Eliquis for that. He is below, his BMI weight is at 17.7 with a suggestion of malnutrition, although his pre-albumin is only slightly low at 18.6 and albumin slightly low at 3.1. Will have protein supplementation as well. Rehab Specific Plan: As noted, he will have 3.5 hours 5-7 days for physical, occupational, and speec h therapy to improve his ability to perform upper and lower body dressing, donning and doffing shoes, or transferring from bed to chair to wheelchair to toilet, to also performing a shower and to ambula te household distances. He just has a threshold in his house where he lives and does not have steps. However, we will still work on him going up and down steps at least 10 flights of steps with him be ing able to do it with modified independence and again ambulation of 250 feet with modified independe nce. He does have a good understanding of how the interdisciplinary approach to his rehabilitation will be nefit him. It is expected that he will be able to participate fully in the therapy as outlined inclu ding speech, physical, and occupational therapy. As need be, nutritional services, wound care servic es if need be. Specially for his right arm, orthopedic services. Nutrition services will be consult ed. Given his complex medical condition, including the fracture, potential for alcohol withdrawal, m ultiple strokes, abdominal aortic aneurysm, the patient's care is best provided in an inpatient rehab ilitation unit instead of a group home facility. Barriers To Discharge: At this point, the right humeral fracture may pose a barrier. He is smelling of urine, which suggests some incontinence of urine that will be addressed. He does have nutrition issues and we addressed and issues of neglect in the right visual field from a stroke that will be ad dressed aggressively. Estimated Length Of Stay: At least 2 weeks. Disposition: Expected to be going back home. Prognosis: At this point is good. Rehabilitation Goals: 1.Independently be able to eat without any assistance of all consistencies. 2.The upper and lower body dressing, and donning and doffing shoes should be independent. 3.Transfers to be independent. 4.Ambulation using perhaps right arm platform if need be or left-sided hemiwalker to be independent. 5.Going to the toilet and showering expect to be dependent. 6.He is expected to cover 250 feet independently. 7.I acknowledge that I have personally done a full physical examination on Mr. Ramses Rodríguez and wi thin the few hours of his arrival to the unit and determined that he is able to tolerate the above co urse of treatment and the intensive level of physical, occupational, and speech therapy is the detail ed. A detailed individualized plan of care for him will be completed by day 4 of his hospital stay b ased on the preadmission screen, admission history and physical, and therapeutic evaluations. SHEYLA Voice ID: [id number]
[2022-05-28] MEDS: CODEINE 30MG/APAP 300MG TAB PO PRN (18:51)
[2022-05-28] MEDS: ENSURE ENLIVE 237 ML CAN PO SCH (19:49)
[2022-05-28] MEDS: ATORVASTATIN 40 MG TAB PO SCH (19:50)
[2022-05-29] MEDS: ASPIRIN 81 MG CHEWABLE TABLET PO SCH (07:42)
[2022-05-29] MEDS: APIXABAN 2.5 MG TABLET PO SCH ×2 (07:42→20:15)
[2022-05-29] MEDS: FAMOTIDINE 20 MG TAB PO SCH ×2 (07:42→20:15)
[2022-05-29] MEDS: NYSTATIN PWDR 100000 UNIT/GM TOP SCH ×2 (07:43→20:14)
[2022-05-29] MEDS: THIAMINE HCL 100 MG TABLET PO SCH (07:43)
[2022-05-29] MEDS: SENOSIDES 8.6 MG TAB PO SCH (07:43)
[2022-05-29] MEDS: ENSURE ENLIVE 237 ML CAN PO SCH ×2 (07:43→20:15)
[2022-05-29] MEDS: LIDOCAINE 4% PATCH TOP SCH (07:43)
[2022-05-29] MEDS: FOLIC ACID 1 MG TABLET PO SCH (07:43)
[2022-05-29] MEDS: CODEINE 30MG/APAP 300MG TAB PO PRN (17:45)
--- NOTE | 2022-05-29 19:31 | PN ---
Date of Progress Note: 05/29/2022 Time Of Service: 1:30 p.m. Subjective: Mr. Rodríguez reports doing better today. He still has mild pain in the right humeral frac ture. The right arm is in a sling. Does have a pain patch in place. He is ambulating with the ther apist who is carrying a chair behind and has a gait belt with contact guard assistance as he ambulate s. He denies any new complaints. Review of Systems: No fevers, chills, nausea, vomiting. Mild pain in the right humeral region. No constipation or diar charles. No difficulty sleeping. No other complaints. Physical Examination: Vital Signs: Blood pressure 149/79, pulse 64, respiratory rate 18, temperature 97.9, oxygen saturati on 97%. Weight 127 pounds, height 5 feet, and BMI 70.7. General: Mr. Rodríguez is doing well. He is in no significant distress. He appears normocephalic, atr aumatic. His right arm is in a sling. He does have a maldonado and appeared to be somewhat unkempt. At this point, he did not smell of urine as he did yesterday. Extremities: No cyanosis or edema noted. Laboratory Studies: White blood cell count 8.8, hemoglobin 13.3, platelets 228. Chemistry: Sodium 139, potassium 3.9, chloride 106, carbon dioxide 28, BUN 20, creatinine 0.87, prealbumin 18.6, albumi n 3.1. COVID testing is negative. X-ray Imaging: None. Medications: Tylenol 500 mg every 4 hours and Tylenol 3, one every 4 hours as needed for moderate pa in; Eliquis 2.5 mg twice daily; aspirin 81 mg daily; Lipitor 40 mg at bedtime; Pepcid 20 mg twice esperanza ly; folic acid 1 mg daily; lidocaine patch to the right arm 12 hours on, 12 hours off; Ensure Enlive 237 mL twice daily; Mycostatin powder, apply topically twice daily; Senokot 8.6 mg daily; vitamin B1 100 mg subcutaneously daily. Current Functional Status: Currently, Mr. Rodríguez is able to ambulate without the use of an assistive device. He did so inside on levelled surfaces with minimal assistance of contact guard assist with verbal cues, did cover 75 feet 3 times and 125 feet twice. Did require verbal cues as noted. He was able to mobilize a wheelchair 150 feet with bilateral lower extremities. Regarding his speech, he d id have adequate auditory comprehension to single words, simple sentences, complex directions, and si mple paragraphs. He did show poor functional correction following therapy. Progress Towards Rehabilitation: He is making excellent progress thus far with his rehabilitation go als of becoming independent with upper and lower body dressing, transferring, toileting, showering, a mbulating at least 500 feet with modified independence to independence and with the use of either can e or no assistive device. Assessment And Plan: Mr. Rodríguez is a 67-year-old patient admitted to the inpatient rehabilitation un it with stroke from which he is beginning to recover very well. He does have a right humeral fractur e and he is recovering well from that. Pain is well managed. He has comorbid history of alcohol use and is on thiamine and folic acid after reduced risk of alcohol withdrawal. Does have constipation, and is on Senokot. He has mildly poor nutrition, Ensure Enlive High Protein 237 mL twice daily. Do es have Lipitor for dyslipidemia and Tylenol No.3 for moderate pain along with the lidocaine patch. Plan: Again, he will have physical and occupational speech therapy for 3.5 hours 5 to 7 days and his comorbid conditions listed above will be addressed with medications as noted excluding his risk for deep vein thrombosis in the office. Comorbidities That Continue To Impact Rehabilitation Process: At this point, his comorbidities are s tably managed. He is not in the window for alcohol withdrawals. His right humeral fracture is in a sling. Pain is managed there and he is participating well with his physical and occupational therapy. HODA/XIMENAL Voice ID: [id number] Report ID: [id number]
[2022-05-29] MEDS: ATORVASTATIN 40 MG TAB PO SCH (20:15)
[2022-05-29 21:03] LABS: Specific Gravity 1.024 (1.005-1.030); Urine Bacteria None Seen /HPF (<20); Urine Bilirubin NEGATIVE (Negative); Urine Blood Negative (Negative); Urine Clarity Clear (Clear); Urine Color Yellow (Yellow); Urine Glucose NEGATIVE (Negative); Urine Mucus Slight /HPF (None Seen); Urine Protein TRACE (Negative); Urine RBC <5 /HPF (None Seen); Urine Urobilinogen Normal (Normal); Urine pH 5.5 (5.0-7.0)
[2022-05-30] MEDS: LIDOCAINE 4% PATCH TOP SCH (07:16)
[2022-05-30] MEDS: THIAMINE HCL 100 MG TABLET PO SCH (07:17)
[2022-05-30] MEDS: FAMOTIDINE 20 MG TAB PO SCH ×2 (07:17→20:31)
[2022-05-30] MEDS: ASPIRIN 81 MG CHEWABLE TABLET PO SCH (07:17)
[2022-05-30] MEDS: NYSTATIN PWDR 100000 UNIT/GM TOP SCH ×2 (07:17→20:31)
[2022-05-30] MEDS: FOLIC ACID 1 MG TABLET PO SCH (07:17)
[2022-05-30] MEDS: SENOSIDES 8.6 MG TAB PO SCH (07:17)
[2022-05-30] MEDS: APIXABAN 2.5 MG TABLET PO SCH ×2 (07:17→20:31)
[2022-05-30] MEDS: ENSURE ENLIVE 237 ML CAN PO SCH ×2 (07:18→20:31)
--- NOTE | 2022-05-30 08:36 | P.RH.PN ---
Estimated Length of Stay: 17 Expected Discharge Date: 06/11/22 Discharge Disposition Plan: Home Family Support: Yes Snf Goal: Mobility, Transfers, Self Care Vital Signs: Last Vital Signs Temp 97.6 F 05/30/22 08:00 Pulse 68 05/30/22 08:00 Resp 14 05/30/22 08:00 BP 147/88 H 05/30/22 08:00 Pulse Ox 98 05/30/22 08:00 Laboratory: Laboratory Last Values WBC 8.80 K/uL (4.3-10.9) 05/28/22 05:08 RBC 4.33 M/uL (4.33-5.43) 05/28/22 05:08 Hgb 13.3 g/dL (13.6-17.9) L 05/28/22 05:08 Hct 38.9 % (39.6-49.0) L 05/28/22 05:08 MCV 89.7 fL (80-100) 05/28/22 05:08 MCH 30.6 pg (27.0-35.0) 05/28/22 05:08 MCHC 34.1 g/dL (32.0-36.0) 05/28/22 05:08 RDW 12.5 % (12.1-15.2) 05/28/22 05:08 Plt Count 228 K/uL (152-406) 05/28/22 05:08 MPV 9.0 fL (7.6-11.3) 05/28/22 05:08 Neutrophils % 73.5 % (41.7-73.7) 05/28/22 05:08 Lymphocytes % 17.2 % (15.3-44.8) 05/28/22 05:08 Monocytes % 6.5 % (3.3-12.3) 05/28/22 05:08 Eosinophils % 2.2 % (0-4.4) 05/28/22 05:08 Basophils % 0.6 % (0-1.3) 05/28/22 05:08 Absolute Neutrophils 6.5 K/uL (1.8-8.0) 05/28/22 05:08 Absolute Lymphocytes 1.5 K/uL (0.7-4.9) 05/28/22 05:08 Absolute Monocytes 0.6 K/uL (0.1-1.3) 05/28/22 05:08 Absolute Eosinophils 0.2 K/uL (0-0.5) 05/28/22 05:08 Absolute Basophils 0.1 K/uL (0-0.5) 05/28/22 05:08 Sodium 139 mmol/L (136-145) 05/28/22 05:08 Potassium 3.9 mmol/L (3.5-5.1) 05/28/22 05:08 Chloride 106 mmol/L (98-107) 05/28/22 05:08 Carbon Dioxide 28 mmol/L (21-32) 05/28/22 05:08 Anion Gap 8.9 mEq/L (5.0-15.0) 05/28/22 05:08 BUN 20 mg/dL (7-18) H 05/28/22 05:08 Creatinine 0.87 mg/dL (0.70-1.30) 05/28/22 05:08 Est GFR (CKD-EPI) 95 ml/min (=/>90) 05/28/22 05:08 Glucose 134 mg/dL (74-106) H 05/28/22 05:08 Calcium 8.7 mg/dL (8.5-10.1) 05/28/22 05:08 Magnesium 1.8 mg/dL (1.6-2.4) 05/28/22 05:08 Albumin 3.1 g/dL (3.4-5.0) L 05/28/22 05:08 Prealbumin 18.6 mg/dL (20-40) L 05/28/22 05:08 Urine Color Yellow (Yellow) 05/29/22 20:30 Urine Clarity Clear (Clear) 05/29/22 20:30 Urine pH 5.5 (5.0-7.0) 05/29/22 20:30 Ur Specific [place] 1.024 (1.005-1.030) 05/29/22 20:30 Glucose (UA)(Auto) Negative (Negative) 05/29/22 20:30 Urine Ketones Negative (Negative) 05/29/22 20:30 Urine Blood Negative (Negative) 05/29/22 20:30 Urine Nitrite Negative (Negative) 05/29/22 20:30 Urine Bilirubin Negative (Negative) 05/29/22 20:30 Urine Urobilinogen Normal (Normal) 05/29/22 20:30 Ur Leukocyte Esterase Negative Jamarcus/uL (Negative) 05/29/22 20:30 Urine RBC <5 /HPF (None Seen) 05/29/22 20:30 Urine WBC <5 /HPF (<5) 05/29/22 20:30 Ur Squamous Epith Cells None seen /HPF (None Seen) 05/29/22 20:30 U Non-Squamous Epi Cells <5 /HPF (None Seen) 05/29/22 20:30 Urine Bacteria None seen /HPF (<20) 05/29/22 20:30 Urine Mucus Slight /HPF (None Seen) 05/29/22 20:30 Urine Culture Reflexed Not needed 05/29/22 20:30 Urine Total Protein Trace (Negative) H 05/29/22 20:30 SARS-CoV-2 Rap RNA(RT-PCR) Negative (NEGATIVE) 05/27/22 20:00 Weight: 127 lb Wound Present: No Closed Surgical Incision Present: No Negative Pressure Wound Therapy Present: No Physician Update: Labs reviewed and are stable. He is mildly depressed likely about his strokes and and his right humeral fracture. He takes Tylenol and a pain patch with 2-3/10 pain relief. Will start Cymbalta 20 mg daily. Min assistance with transfers. Walking 125' with min assistance. Mod assistance in the shower. Non compliant with weight bearing status in the right arm. Summary: Patient's care plan and care home goals have been reviewed and revised as necessary. Please see the Rehabilitation Signature page for all necessary signatures.
[2022-05-30] MEDS ORDERED: CYANOCOBALAMIN 1000MCG/ML INJ SQ ONE (10:30)
[2022-05-30] MEDS: ATORVASTATIN 40 MG TAB PO SCH (20:31)
[2022-05-30] MEDS: MEGESTROL 40 MG TAB PO SCH (20:31)
[2022-05-31] MEDS: ENSURE ENLIVE 237 ML CAN PO SCH ×2 (08:00→20:08)
[2022-05-31] MEDS: LIDOCAINE 4% PATCH TOP SCH (08:17)
[2022-05-31] MEDS: NICOTINE 14 MG/PAT TD SCH (08:17)
[2022-05-31] MEDS: DULOXETINE 20 MG CAP PO SCH (08:18)
[2022-05-31] MEDS: ASPIRIN 81 MG CHEWABLE TABLET PO SCH (08:18)
[2022-05-31] MEDS: MEGESTROL 40 MG TAB PO SCH ×2 (08:18→20:08)
[2022-05-31] MEDS: SENOSIDES 8.6 MG TAB PO SCH (08:18)
[2022-05-31] MEDS: THIAMINE HCL 100 MG TABLET PO SCH (08:18)
[2022-05-31] MEDS: FOLIC ACID 1 MG TABLET PO SCH (08:18)
[2022-05-31] MEDS: APIXABAN 2.5 MG TABLET PO SCH ×2 (08:18→20:08)
[2022-05-31] MEDS: FAMOTIDINE 20 MG TAB PO SCH ×2 (08:18→20:08)
[2022-05-31] MEDS: NYSTATIN PWDR 100000 UNIT/GM TOP SCH ×2 (08:19→20:08)
--- NOTE | 2022-05-31 19:35 | PN ---
Date of Progress Note: 05/31/2022 Time Of Service: 1 p.m. Subjective: Mr. Rodríguez is doing well. He has no complaints. He is sitting up beside the bed with t he therapists. His right arm is being adjusted in the sling for his humeral fracture. Review of Systems: He has mild pain in the right arm. Otherwise, he denies any significant problems on his review of sy stems. Physical Examination: Vital Signs: Blood pressure ranged from 112 to 171 over 69 to 84, pulse 73 to 78, temperature 97.9, oxygen saturation 98%. He did have some orthostatics while lying; blood pressure 171/84, sitting; an d pulse was 73, sitting, blood pressure 178/94, pulse of 75, and standing blood pressure was 90/61. They did not record the pulse. General: Mr. Rodríguez is sitting at the side of the bed. He has a maldonado. He is somewhat unkempt stil l despite being in the rehab unit. HEENT: He is otherwise normocephalic, atraumatic. His sclerae are anicteric. He does have the righ t arm in the sling. Extremities: Show no significant edema or cyanosis. He does appear somewhat cachectic that is thin and emaciated. Otherwise, he does have some incoordination. His strokes do involve a proximal left MCA with occlusion. He does have right hemineglect, right hem ifield deficits in attention and dysarthria with mild dysphagia. Laboratory Studies: No new laboratory studies. X-ray imaging: No new x-rays and imaging. Medications: Remained unchanged. He is taking aspirin 81 mg daily for stroke risk reduction. Eliqu is 2.5 mg twice daily for DVT risk reduction. He has Tylenol 3 for pain that is for the fracture. H nika has Cymbalta 20 mg daily started for depression. He has folic acid to help reduce risk of stroke. Megace 40 mg twice daily for appetite stimulation. Nicotine patch 14 mg daily to reduce risk of him wanting to smoke and to help him begin to wean off tobacco cigarettes. He has Senokot 8.6 mg at [facility] for constipation, and Mycostatin powder applied as appropriate and Ensure Enlive 237 mL twice jeronimo y for malnutrition. Current Level Of Functioning: Currently, he did not want to ambulate today. There was some orthosta tic dizziness as noted. He did mobilized the wheelchair 150 feet with improved functional mobility. Progress Towards Rehabilitation Goals: He is making fair overall progress towards his rehabilitation goals. Assessment And Plan: Mr. Rodríguez is a 67-year-old patient admitted to the rehabilitation unit with mu ltiple strokes both acute and subacute that left him with a right hemineglect, right hemifield defici ts, right-sided incoordination, diffuse weakness and a fall with a right humeral fracture that he is in a sling and he has a nonweightbearing status there. He has comorbid hypertension, dyslipidemia, t obacco dependency, alcohol use, and abdominal aortic aneurysm. Plans: 1.Continue with aggressive physical, occupational, and speech therapy. 2.Continue with management of his comorbid conditions as outlined by the medications listed above. Comorbidities That Continue To Impact Rehabilitation Process: At this point, depression is a factor. He is on antidepressants. In addition, he has malnutrition and his status there is being addressed with the protein supplementation. He has hypertension with antihypertensive medications. Tobacco d ependency with nicotine patch. Alcohol use, and risk of withdrawal, which is very, very low. He is on thiamine for that. LB/MODL Voice ID: [id number] Report ID: [id number]
[2022-05-31] MEDS: ATORVASTATIN 40 MG TAB PO SCH (20:08)
[2022-06-01] MEDS: NYSTATIN PWDR 100000 UNIT/GM TOP SCH ×2 (08:00→20:20)
[2022-06-01] MEDS: APIXABAN 2.5 MG TABLET PO SCH ×2 (09:00→20:19)
[2022-06-01] MEDS: LIDOCAINE 4% PATCH TOP SCH (09:02)
[2022-06-01] MEDS: NICOTINE 14 MG/PAT TD SCH (09:02)
[2022-06-01] MEDS: FAMOTIDINE 20 MG TAB PO SCH ×2 (09:03→20:20)
[2022-06-01] MEDS: DULOXETINE 20 MG CAP PO SCH (09:03)
[2022-06-01] MEDS: SENOSIDES 8.6 MG TAB PO SCH (09:03)
[2022-06-01] MEDS: MEGESTROL 40 MG TAB PO SCH ×2 (09:03→20:20)
[2022-06-01] MEDS: THIAMINE HCL 100 MG TABLET PO SCH (09:03)
[2022-06-01] MEDS: ASPIRIN 81 MG CHEWABLE TABLET PO SCH (09:03)
[2022-06-01] MEDS: FOLIC ACID 1 MG TABLET PO SCH (09:03)
[2022-06-01] MEDS: ENSURE ENLIVE 237 ML CAN PO SCH ×2 (09:33→20:20)
[2022-06-01] MEDS: ATORVASTATIN 40 MG TAB PO SCH (20:20)
[2022-06-02] MEDS: NYSTATIN PWDR 100000 UNIT/GM TOP SCH ×2 (08:00→19:53)
[2022-06-02] MEDS: APIXABAN 2.5 MG TABLET PO SCH ×2 (08:54→19:53)
[2022-06-02] MEDS: MEGESTROL 40 MG TAB PO SCH ×2 (09:02→19:53)
[2022-06-02] MEDS: DULOXETINE 20 MG CAP PO SCH (09:02)
[2022-06-02] MEDS: SENOSIDES 8.6 MG TAB PO SCH ×2 (09:02→19:53)
[2022-06-02] MEDS: ASPIRIN 81 MG CHEWABLE TABLET PO SCH (09:02)
[2022-06-02] MEDS: THIAMINE HCL 100 MG TABLET PO SCH (09:02)
[2022-06-02] MEDS: NICOTINE 14 MG/PAT TD SCH (09:02)
[2022-06-02] MEDS: FOLIC ACID 1 MG TABLET PO SCH (09:02)
[2022-06-02] MEDS: FAMOTIDINE 20 MG TAB PO SCH ×2 (09:03→19:53)
[2022-06-02] MEDS: LIDOCAINE 4% PATCH TOP SCH (09:03)
[2022-06-02] MEDS: ENSURE ENLIVE 237 ML CAN PO SCH ×2 (09:04→19:53)
[2022-06-02 09:07] LABS: Absolute Lymphocytes (CBC) 1.2 K/uL (0.7-4.9); Hematocrit 35.1 % (39.6-49.0); Lymphocytes % 16.8 % (15.3-44.8); MCV 96.4 fL (80-100); MPV 8.1 fL (7.6-11.3); RBC Red Blood Cell Count 3.64 M/uL (4.33-5.43)
[2022-06-02 09:20] LABS: Magnesium 2.1 mg/dL (1.6-2.4)
[2022-06-02] MEDS ORDERED: NA CHLORIDE 0.9% 1,000 ML IV SCH (11:00)
[2022-06-02] MEDS: FLUDROCORTISONE 0.1 MG TAB PO SCH (11:04)
--- NOTE | 2022-06-02 19:34 | PN ---
Date of Progress Note: 06/02/2022 Time Of Service: 1:00 p.m. Subjective: Mr. Rodríguez is lying in bed. 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 He does report if given opportunity, he will participate more and once he is lying in bed, he appears to be doing okay and is ready to partake in his therapy much better. Review of Systems: Again, diffuse weakness at times when standing, but no myalgias, significant arthralgias. No rash, h eadache, psychiatric complaints, but he does endorse some features of depression. Physical Examination: Vital Signs: Mr. Rodríguez's blood pressure 132/56, pulse 73, respiratory rate 16, temperature 97.6. N ote on orthostatics earlier in the day, he had while lying 185/95, pulse of 73 and then sitting 99/70 , pulse of 93. Neuro: He does have some right hemineglect, right hemifield deficit, incoordination in the right tori e. In addition, there is a right humeral fracture. It is with his arm in the sling. He does have c omorbid hypertension dyslipidemia, tobacco dependency, alcohol use, and abdominal aortic aneurysm. Plan: 1.Aggressive physical, occupational, and speech therapy for his deficits. 2.For hypertension, continue off antihypertensives and will add Florinef for he has episodes of hypo tension that is 0.1 mg daily. 3.For his stroke risk reduction, he is on Eliquis 2.5 mg twice daily along with aspirin 81 mg daily. 4.For pain, he has Tylenol No. 3. 5.Tylenol for dyslipidemia. 6.He is taking Lipitor 40 mg at bedtime for poor appetite. He is on Megace 40 mg twice daily. 7.He has thiamine 100 mg daily to help reduce risk of alcohol withdrawal. 8.For malnutrition, he is on Ensure Enlive 237 mL twice daily. 9.He does have a nicotine patch 14 mg for reduced urge to smoke and for the dysthymic and depression symptoms. He is on Cymbalta 20 mg daily. Current Functional Status: Again, he had significant orthostatic changes while trying to do therapy. He did tell the therapist he just wanted to go home. He did, however, do therapeutic exercises cam aterally in the upper and lower extremities 12 repetitions. He was nonweightbearing in the right upp er extremity due to the fracture. He did earlier ambulate 70 feet with maximum assistance without th e use of an assistive device, but that stopped because of blood pressure dropping to 54/36. He did w ork with Speech Therapy today, did attempt sentences. Repeated I can do that, but did not do what th e therapist asked and is responsive. Naming was 80% accurate at exact was of 80% accuracy. Progress towards rehabilitation goals. He has made slow progress so far with his rehabilitation goal s of becoming independent with upper and lower body dressing, donning and doffing his shoes, and is t o transfer from bed, chair, toilet, and shower and then to ambulate with modified independence upper upwards of 250 feet and 10 steps. He does have a significant depression holding him back. Assessment: Mr. Rodríguez is a 67-year-old patient admitted to rehabilitation unit with acute and subac lupe left hemispheric and right hemispheric strokes with right hemifield deficit, right-sided incoordi nation, diffuse weakness. He does have also a right humeral fracture. His arm in a sling. He has n onweightbearing status. He has hypertension, dyslipidemia, tobacco dependency, alcohol use, and abdo riley aortic aneurysm. Plan: 1.Continue aggressive physical, occupational, and speech therapy. 2.As noted, aspirin and Eliquis for stroke risk reduction, Lipitor for dyslipidemia, duloxetine for depression, Florinef to support his blood pressure, Megace for appetite and for tobacco wi thdrawal and thiamine 100 mg daily to reduce risk of alcohol withdrawal. Comorbidities That Continue To Impact Rehabilitation Process: He does have significant difficulty wi th mood and regaining his drive to do well and hopefully the Cymbalta can help to begin to improve th at and he is covered for pain with a patch in the right arm and for poor nutrition and for his DVT risk. LB/MODL Voice ID: [id number] Report ID: [id number]
[2022-06-02] MEDS: ATORVASTATIN 40 MG TAB PO SCH (19:53)
[2022-06-03] MEDS: NYSTATIN PWDR 100000 UNIT/GM TOP SCH ×2 (08:00→20:01)
[2022-06-03] MEDS: FOLIC ACID 1 MG TABLET PO SCH (09:00)
[2022-06-03] MEDS: APIXABAN 2.5 MG TABLET PO SCH ×2 (09:00→20:00)
[2022-06-03] MEDS: FAMOTIDINE 20 MG TAB PO SCH ×2 (09:00→20:00)
[2022-06-03] MEDS: SENOSIDES 8.6 MG TAB PO SCH ×2 (09:01→20:00)
[2022-06-03] MEDS: NICOTINE 14 MG/PAT TD SCH (09:01)
[2022-06-03] MEDS: MEGESTROL 40 MG TAB PO SCH ×2 (09:01→20:00)
[2022-06-03] MEDS: ASPIRIN 81 MG CHEWABLE TABLET PO SCH (09:01)
[2022-06-03] MEDS: FLUDROCORTISONE 0.1 MG TAB PO SCH (09:01)
[2022-06-03] MEDS: DULOXETINE 20 MG CAP PO SCH (09:01)
[2022-06-03] MEDS: THIAMINE HCL 100 MG TABLET PO SCH (09:01)
[2022-06-03] MEDS: LIDOCAINE 4% PATCH TOP SCH (09:02)
[2022-06-03] MEDS: ENSURE ENLIVE 237 ML CAN PO SCH ×2 (09:03→20:01)
[2022-06-03] MEDS: CODEINE 30MG/APAP 300MG TAB PO PRN (13:49)
[2022-06-03] MEDS ORDERED: NA CHLORIDE 0.9% 1,000 ML IV SCH (14:00)
[2022-06-03] MEDS: ATORVASTATIN 40 MG TAB PO SCH (20:00)
--- NOTE | 2022-06-03 22:22 | PN ---
Subjective: Mr. Rodríguez is better cooperating, better today. He denies any significant pain except t he right arm where he has the fracture in the humerus and he has a pain patch on there and a sling. Review of Systems: Again, some pain in the right arm. Otherwise, he is improving in terms of his mood and participation with therapy. Objective: Vital Signs: Blood pressure 136/69, pulse 74, respiratory rate 16, temperature 98.2, and oxygen saturation 96%. Extremities: His pain ranges from 2 up to 7 in the right arm depending on therapy. Otherwise, he draper s some difficulty with his right hemifield, right-sided incoordination, and diffuse weakness. Laboratory Studies: No new laboratory studies compared to yesterday. X-ray/imaging: No new x-ray or imaging. Medications: Remained unchanged. He is on Eliquis 2.5 mg twice daily for DVT risk reduction, aspiri n 81 mg daily for stroke risk reduction, Lipitor for dyslipidemia, duloxetine for depression, thiamin e for the risk of alcohol withdrawal which is much, much reduced. He is also on nicotine patch for h is tobacco dependency. Current Functional Status: Mr. Rodríguez was able to ambulate 20 feet twice with contact guard assistan ce without the use of an assistive device. He did have a drop of the blood pressure at one point wit h systolic from supine 128 to 86 with standing and diastolic went from 83 while supine to 65 with sta nding. Heart rate was 76 while supine and 95 while standing. He was mildly symptomatic. Progress Towards Rehabilitation Goals: He is making fair overall progress towards rehabilitation goa ls of becoming independent with upper and lower body dressing, transferring, toileting, and beginning to ambulate close to household distances, in addition to using that left hand, which is nonweightbea ring and in a sling. Assessment: Mr. Rodríguez is a 67-year-old patient with [id number] left hemispheric and right he mispheric strokes with right hemifield deficit, right-sided incoordination, and diffuse weakness. He has a right femur fracture that is traumatic. That arm is in a sling and is nonweightbearing. He h as hypertension, dyslipidemia, tobacco dependency, alcohol abuse, and abdominal aortic aneurysm. Plan: 1.Continue with physical, occupational, and speech therapy. 2.Continue with Eliquis for DVT risk reduction. 3.Continue with aspirin for stroke risk reduction. 4.Continue Lipitor for dyslipidemia. 5.Continue digoxin for depression. 6.He does have Florinef 0.1 mg daily for low blood pressures and Megace for poor appetite. Comorbidities That Continue To Impact His Rehabilitation Process: At this point, he has difficulty w ith motivation that is perhaps the biggest issue, but he is on Cymbalta and appears to be improving. He does have poor nutrition and tobacco dependency and those are addressed as noted. HODA/SHAHRZAD Voice ID: [id number] Report ID: [id number]
[2022-06-04] MEDS: NICOTINE 14 MG/PAT TD SCH (07:53)
[2022-06-04] MEDS: LIDOCAINE 4% PATCH TOP SCH (07:53)
[2022-06-04] MEDS: DULOXETINE 20 MG CAP PO SCH (07:54)
[2022-06-04] MEDS: ASPIRIN 81 MG CHEWABLE TABLET PO SCH (07:54)
[2022-06-04] MEDS: FAMOTIDINE 20 MG TAB PO SCH ×2 (07:54→20:22)
[2022-06-04] MEDS: CODEINE 30MG/APAP 300MG TAB PO PRN (07:54)
[2022-06-04] MEDS: FLUDROCORTISONE 0.1 MG TAB PO SCH (07:55)
[2022-06-04] MEDS: THIAMINE HCL 100 MG TABLET PO SCH (07:55)
[2022-06-04] MEDS: APIXABAN 2.5 MG TABLET PO SCH ×2 (07:55→20:22)
[2022-06-04] MEDS: SENOSIDES 8.6 MG TAB PO SCH ×2 (07:55→20:22)
[2022-06-04] MEDS: MEGESTROL 40 MG TAB PO SCH ×2 (07:55→20:22)
[2022-06-04] MEDS: FOLIC ACID 1 MG TABLET PO SCH (07:55)
[2022-06-04] MEDS: ENSURE ENLIVE 237 ML CAN PO SCH ×2 (07:55→20:22)
[2022-06-04] MEDS: NYSTATIN PWDR 100000 UNIT/GM TOP SCH ×2 (07:56→20:23)
[2022-06-04] MEDS: ATORVASTATIN 40 MG TAB PO SCH (20:22)
--- NOTE | 2022-06-04 21:21 | PN ---
Date of Progress Note: 06/04/2022 Time Of Service: 1:30 p.m. Subjective: Mr. Rodríguez is resting in bed. He did say he is participating well. However, he at time s will have bowel movements and urinate without telling staff and at sometimes he does. His family a ctually said they are not willing to take him home unless he is able to appropriately have bowel move ments in the commode instead of in his in his undergarments. Review of Systems: He does appear to have some features of depression with a very flat affect. Physical Examination: Vital Signs: Blood pressure 125/74, pulse 77, respiratory rate 16, temperature 97.7. Pain level of 2. In terms of orthostatics today while lying, blood pressure 160/87, pulse 83. While sitting, bloo d pressure 124/81, pulse 82. Extremities: His examination otherwise shows some pain in the right arm where he has a fracture in t he humerus. It is in a sling and he is able to squeeze the right hand very well. He does have a mil d right hemifield deficit, right micaela-neglect, and diffuse weakness of his lower extremities. Laboratory Studies: No new laboratory studies except he had a PSA done that was normal at 2.09. X-ray imaging: No new x-ray imaging. Medications: Medications remain unchanged. He does have medications for stroke risk reduction inclu ding aspirin. He has Eliquis 2.5 mg twice daily for DVT risk reduction. He has Florinef to help dec rease the risk of a severe drop in his blood pressure. He has Megace to improve his appetite. He draper s thiamine to reduce the risk of alcohol withdrawal, which is highly unlikely at this stage and he draper s Cymbalta for depression. Current Functional Status: Currently, he is able to ambulate 200 feet with standby assistance withou t the use of assistive device, did have proper gait mechanics. He did supine to sit transfers and s tandby assistance. Progress Towards Rehabilitation Goals: He is actually making very good progress towards his rehabili tation goals, although he does have some limitations in terms of following instructions and performin g activities such as going to the bathroom properly. With his speech therapy, he did complete comple x naming given a category with cuing 80% accurately. He did complete sentence formulation 87% accura tely, demonstrated temporal orientation 100%, but situational orientation was only 33%. Assessment: Mr. Rodríguez is a 67-year-old patient with an acute on subacute left hemispheric and right hemispheric stroke with right hemifield deficit, right-sided incoordination, and diffuse weakness an d he has a right femur fracture. He has comorbidities of hypertension, dyslipidemia, tobacco depende ncy, alcohol abuse, and abdominal aortic aneurysm. Plan: 1.Continue physical, occupational, speech therapy. 2.Continue aspirin for stroke reduction. 3.Lipitor for dyslipidemia. 4.Eliquis for DVT, risk reduction. 5.Megace for poor appetite. 6.Senokot S for constipation. Comorbidities That Continue To Impact Rehabilitation Process: At this point, he does have incontinen ce of stool and urine at times and that is making it difficult for family to accept him back home. T he patient, however, is ambulating very well, can transfer much better than when he came in and he ap pears to be choosing not to use the bathroom, although it is very difficult to assess accurately if t hat is the case. In any event, he will likely end up at a prison facility and not home as he is not able to manage his bowels independently. LB/MODL Voice ID: [id number] Report ID: [id number]
[2022-06-05 05:48] LABS: Absolute Lymphocytes (CBC) 1.2 K/uL (0.7-4.9); Hematocrit 33.5 % (39.6-49.0); Lymphocytes % 15.7 % (15.3-44.8); MCV 96.2 fL (80-100); MPV 8.3 fL (7.6-11.3); RBC Red Blood Cell Count 3.48 M/uL (4.33-5.43)
[2022-06-05 06:19] LABS: Albumin 2.9 g/dL (3.4-5.0); Potassium 3.7 mmol/L (3.5-5.1); Prealbumin 13.2 mg/dL (20-40)
[2022-06-05] MEDS: NICOTINE 14 MG/PAT TD SCH (07:29)
[2022-06-05] MEDS: MEGESTROL 40 MG TAB PO SCH ×2 (07:29→20:54)
[2022-06-05] MEDS: LIDOCAINE 4% PATCH TOP SCH (07:29)
[2022-06-05] MEDS: APIXABAN 2.5 MG TABLET PO SCH ×2 (07:30→20:54)
[2022-06-05] MEDS: DULOXETINE 20 MG CAP PO SCH (07:30)
[2022-06-05] MEDS: FOLIC ACID 1 MG TABLET PO SCH (07:30)
[2022-06-05] MEDS: FLUDROCORTISONE 0.1 MG TAB PO SCH (07:30)
[2022-06-05] MEDS: THIAMINE HCL 100 MG TABLET PO SCH (07:30)
[2022-06-05] MEDS: ASPIRIN 81 MG CHEWABLE TABLET PO SCH (07:30)
[2022-06-05] MEDS: FAMOTIDINE 20 MG TAB PO SCH ×2 (07:30→20:54)
[2022-06-05] MEDS: NYSTATIN PWDR 100000 UNIT/GM TOP SCH ×2 (07:31→20:54)
[2022-06-05] MEDS: SENOSIDES 8.6 MG TAB PO SCH ×2 (08:00→20:54)
[2022-06-05] MEDS: ENSURE ENLIVE 237 ML CAN PO SCH ×2 (10:32→20:54)
[2022-06-05] MEDS: ATORVASTATIN 40 MG TAB PO SCH (20:54)
--- NOTE | 2022-06-05 21:50 | PN ---
Date of Progress Note: 06/05/2022 Time Of Service: 1:30 p.m. Subjective: Mr. Rodríguez is in a wheelchair going around the unit. He seems to have better spirits to day compared to yesterday. He did say he was able to get to the toilet to have bowel movements, but he is still having accidents in terms of both stool and urine. Review of Systems: His appearance of depression is still present. He does report episodes of not being able to make it to the bathroom in terms of losing control of stool and urine, although at times he is able to contro l it. Physical Examination: Vital Signs: His blood pressure today while lying 167/84 and pulse was 80, while sitting 129/77, pul se 85. General: Mr. Rodríguez is in a wheelchair, again going around the rehabilitation unit. HEENT: He appears normocephalic, atraumatic. Sclerae anicteric. Oropharynx is pink and moist. Rojas s have a full maldonado. In terms of his deficits, he does have a fracture in the right humerus. The right arm is in a sling. He has a mild right hemifield deficit with right hemineglect, and diffuse weakness in both lower ex tremities. Laboratory Studies: White blood cell count 7.5, hemoglobin 11.6, platelets 214. Chemistry: Sodium 136, potassium 3.7, chloride 104, carbon dioxide 28, BUN 12, creatinine 0.69, glucose 107, calcium 8. 0, magnesium 2.0, albumin 2.9. Prealbumin 13.2, which decreased from 18.6 on the 11th, that is 8 day s ago. X-ray Imaging: None. Medications: Tylenol 3 every 4 hours as needed, Eliquis 2.5 mg twice daily, aspirin 81 mg daily, Lip itor 40 mg at bedtime, Cymbalta 20 mg daily, Florinef daily, Megace 40 mg twice daily, Damon oderm patch 14 mg transdermal daily, Ensure Enlive 237 mL twice daily, thiamine 100 mg daily, Senokot S mg twice daily. Current Functional Status: Currently, he is able to ambulate 250 feet in all with standby assistance without the use of an assistive device. He then also able to ambulate another 200 feet with standby assistance without assistive device. With Speech Therapy, he was able to take an appropriate bolus size of food in the mouth, demonstrates prolonged mastication. He did not attempt to take another bi te until he cleared his mouth. He had minimal lingual stasis. Swallowing was timely. His diet was upgraded. Liquids are thin liquids. Progress Towards Rehabilitation Goals: He is actually making much better progress towards his goals of becoming independent with his transfers, his gait, his donning and doffing of clothes, and eating independently. Assessment And Plan: Mr. Rodríguez is a 67-year-old patient with subacute left hemispheric and right he mispheric stroke with right hemifield deficit, right-sided incoordination, right-sided hemineglect, a nd diffuse weakness in the lower extremities. He has a right humeral fracture that is arm fracture. He has comorbid; hypertension, dyslipidemia, tobacco dependency, alcohol abuse, aortic aneurysms. Plan: 1.Continue physical and occupational therapy. 2.Continue aspirin for stroke risk reduction. 3.Continue Lipitor for dyslipidemia. 4.Continue Eliquis for DVT risk reduction. 5.Continue Megace for poor appetite. 6.Continue with protein supplementation. 7.Continue Senokot S for constipation. Comorbidities That Continue To Impact Rehabilitation Process: At this point, he does have some diffi culty with his mobilization. However, he is making better more progress there. He is showing slight improvement in his participation in enthusiasm, but is still having issues of incontinence to urine and the family is unwilling to have him back home when he is incontinent around at this point. One o ption is for him to go to a skilled to try to improve, both manage bowel and bladder function, again improve his ability to become independent with all his activities. LB/MODL Voice ID: [id number] Report ID: [id number]
[2022-06-06] MEDS: NYSTATIN PWDR 100000 UNIT/GM TOP SCH ×2 (08:00→20:26)
--- NOTE | 2022-06-06 08:21 | P.RH.PN ---
Estimated Length of Stay: 17 Expected Discharge Date: 06/12/22 Discharge Disposition Plan: Home Family Support: Yes Group Home Goal: Mobility, Transfers, Self Care Vital Signs: Last Vital Signs Temp 97.3 F 06/06/22 07:49 Pulse 80 06/06/22 07:49 Resp 14 06/06/22 07:49 BP 151/83 H 06/06/22 07:49 Pulse Ox 96 06/06/22 07:49 Laboratory: Laboratory Last Values WBC 7.50 K/uL (4.3-10.9) 06/05/22 05:21 RBC 3.48 M/uL (4.33-5.43) L 06/05/22 05:21 Hgb 11.6 g/dL (13.6-17.9) L 06/05/22 05:21 Hct 33.5 % (39.6-49.0) L 06/05/22 05:21 MCV 96.2 fL (80-100) 06/05/22 05:21 MCH 33.3 pg (27.0-35.0) 06/05/22 05:21 MCHC 34.6 g/dL (32.0-36.0) 06/05/22 05:21 RDW 14.7 % (12.1-15.2) 06/05/22 05:21 Plt Count 214 K/uL (152-406) 06/05/22 05:21 MPV 8.3 fL (7.6-11.3) 06/05/22 05:21 Neutrophils % 64.8 % (41.7-73.7) 06/05/22 05:21 Lymphocytes % 15.7 % (15.3-44.8) 06/05/22 05:21 Monocytes % 11.3 % (3.3-12.3) 06/05/22 05:21 Eosinophils % 6.8 % (0-4.4) H 06/05/22 05:21 Basophils % 1.4 % (0-1.3) H 06/05/22 05:21 Absolute Neutrophils 4.9 K/uL (1.8-8.0) 06/05/22 05:21 Absolute Lymphocytes 1.2 K/uL (0.7-4.9) 06/05/22 05:21 Absolute Monocytes 0.9 K/uL (0.1-1.3) 06/05/22 05:21 Absolute Eosinophils 0.5 K/uL (0-0.5) 06/05/22 05:21 Absolute Basophils 0.1 K/uL (0-0.5) 06/05/22 05:21 Sodium 136 mmol/L (136-145) 06/05/22 05:21 Potassium 3.7 mmol/L (3.5-5.1) 06/05/22 05:21 Chloride 104 mmol/L (98-107) 06/05/22 05:21 Carbon Dioxide 28 mmol/L (21-32) 06/05/22 05:21 Anion Gap 7.7 mEq/L (5.0-15.0) 06/05/22 05:21 BUN 12 mg/dL (7-18) 06/05/22 05:21 Creatinine 0.69 mg/dL (0.70-1.30) L 06/05/22 05:21 Est GFR (CKD-EPI) 101 ml/min (=/>90) 06/05/22 05:21 Glucose 107 mg/dL (74-106) H 06/05/22 05:21 Calcium 8.8 mg/dL (8.5-10.1) 06/05/22 05:21 Magnesium 2.0 mg/dL (1.6-2.4) 06/05/22 05:21 Albumin 2.9 g/dL (3.4-5.0) L 06/05/22 05:21 Prealbumin 13.2 mg/dL (20-40) L 06/05/22 05:21 PSA Screen 2.09 ng/mL (0-4.00) 06/04/22 17:44 Urine Color Yellow (Yellow) 05/29/22 20:30 Urine Clarity Clear (Clear) 05/29/22 20:30 Urine pH 5.5 (5.0-7.0) 05/29/22 20:30 Ur Specific [place] 1.024 (1.005-1.030) 05/29/22 20:30 Glucose (UA)(Auto) Negative (Negative) 05/29/22 20:30 Urine Ketones Negative (Negative) 05/29/22 20:30 Urine Blood Negative (Negative) 05/29/22 20:30 Urine Nitrite Negative (Negative) 05/29/22 20:30 Urine Bilirubin Negative (Negative) 05/29/22 20:30 Urine Urobilinogen Normal (Normal) 05/29/22 20:30 Ur Leukocyte Esterase Negative Jamarcus/uL (Negative) 05/29/22 20:30 Urine RBC <5 /HPF (None Seen) 05/29/22 20:30 Urine WBC <5 /HPF (<5) 05/29/22 20:30 Ur Squamous Epith Cells None seen /HPF (None Seen) 05/29/22 20:30 U Non-Squamous Epi Cells <5 /HPF (None Seen) 05/29/22 20:30 Urine Bacteria None seen /HPF (<20) 05/29/22 20:30 Urine Mucus Slight /HPF (None Seen) 05/29/22 20:30 Urine Culture Reflexed Not needed 05/29/22 20:30 Urine Total Protein Trace (Negative) H 05/29/22 20:30 SARS-CoV-2 Rap RNA(RT-PCR) Negative (NEGATIVE) 06/03/22 04:25 Weight: 120 lb 1.6 oz Wound Present: No Closed Surgical Incision Present: No Negative Pressure Wound Therapy Present: No Physician Update: His blood pressures tend to drop with standing. He is incontinent of bowel and bladder. Walking 250' with SBA, transfering. Improved with dysphagia. Poor awareness. Delayed in responding to instructions. He will likely go to [place] or [facility]. Summary: Patient's care plan and intermodal customer service goals have been reviewed and revised as necessary. Please see the Rehabilitation Signature page for all necessary signatures.
[2022-06-06] MEDS: NICOTINE 14 MG/PAT TD SCH (08:59)
[2022-06-06] MEDS: LIDOCAINE 4% PATCH TOP SCH (09:00)
[2022-06-06] MEDS: MEGESTROL 40 MG TAB PO SCH ×2 (09:00→20:26)
[2022-06-06] MEDS: THIAMINE HCL 100 MG TABLET PO SCH (09:01)
[2022-06-06] MEDS: FOLIC ACID 1 MG TABLET PO SCH (09:01)
[2022-06-06] MEDS: APIXABAN 2.5 MG TABLET PO SCH ×2 (09:01→20:25)
[2022-06-06] MEDS: FAMOTIDINE 20 MG TAB PO SCH ×2 (09:01→20:26)
[2022-06-06] MEDS: FLUDROCORTISONE 0.1 MG TAB PO SCH (09:01)
[2022-06-06] MEDS: DULOXETINE 20 MG CAP PO SCH (09:01)
[2022-06-06] MEDS: ASPIRIN 81 MG CHEWABLE TABLET PO SCH (09:01)
[2022-06-06] MEDS: ENSURE ENLIVE 237 ML CAN PO SCH ×2 (09:02→20:26)
[2022-06-06] MEDS: SENOSIDES 8.6 MG TAB PO SCH ×2 (09:02→20:00)
[2022-06-06] MEDS: ATORVASTATIN 40 MG TAB PO SCH (20:28)
[2022-06-07] MEDS: NYSTATIN PWDR 100000 UNIT/GM TOP SCH ×2 (08:00→20:14)
[2022-06-07] MEDS: LIDOCAINE 4% PATCH TOP SCH (08:25)
[2022-06-07] MEDS: NICOTINE 14 MG/PAT TD SCH (08:25)
[2022-06-07] MEDS: ASPIRIN 81 MG CHEWABLE TABLET PO SCH (08:26)
[2022-06-07] MEDS: MEGESTROL 40 MG TAB PO SCH ×2 (08:26→20:15)
[2022-06-07] MEDS: FAMOTIDINE 20 MG TAB PO SCH ×2 (08:26→20:14)
[2022-06-07] MEDS: APIXABAN 2.5 MG TABLET PO SCH ×2 (08:26→20:14)
[2022-06-07] MEDS: DULOXETINE 20 MG CAP PO SCH (08:27)
[2022-06-07] MEDS: FOLIC ACID 1 MG TABLET PO SCH (08:27)
[2022-06-07] MEDS: FLUDROCORTISONE 0.1 MG TAB PO SCH (08:27)
[2022-06-07] MEDS: THIAMINE HCL 100 MG TABLET PO SCH (08:27)
[2022-06-07] MEDS: SENOSIDES 8.6 MG TAB PO SCH ×2 (08:29→20:15)
[2022-06-07] MEDS: ENSURE ENLIVE 237 ML CAN PO SCH ×2 (08:29→20:15)
[2022-06-07] MEDS: ATORVASTATIN 40 MG TAB PO SCH (20:14)
[2022-06-07] MEDS: CODEINE 30MG/APAP 300MG TAB PO PRN (20:15)
[2022-06-08] MEDS: LIDOCAINE 4% PATCH TOP SCH (07:55)
[2022-06-08] MEDS: NICOTINE 14 MG/PAT TD SCH (07:55)
[2022-06-08] MEDS: SENOSIDES 8.6 MG TAB PO SCH ×2 (07:56→19:51)
[2022-06-08] MEDS: ASPIRIN 81 MG CHEWABLE TABLET PO SCH (07:56)
[2022-06-08] MEDS: DULOXETINE 20 MG CAP PO SCH (07:56)
[2022-06-08] MEDS: MEGESTROL 40 MG TAB PO SCH ×2 (07:56→19:51)
[2022-06-08] MEDS: FLUDROCORTISONE 0.1 MG TAB PO SCH (07:56)
[2022-06-08] MEDS: NYSTATIN PWDR 100000 UNIT/GM TOP SCH ×2 (07:57→19:51)
[2022-06-08] MEDS: FAMOTIDINE 20 MG TAB PO SCH ×2 (07:57→19:51)
[2022-06-08] MEDS: THIAMINE HCL 100 MG TABLET PO SCH (07:57)
[2022-06-08] MEDS: FOLIC ACID 1 MG TABLET PO SCH (07:57)
[2022-06-08] MEDS: ENSURE ENLIVE 237 ML CAN PO SCH ×2 (07:57→19:51)
[2022-06-08] MEDS: APIXABAN 2.5 MG TABLET PO SCH ×2 (07:57→19:51)
[2022-06-08] MEDS: ATORVASTATIN 40 MG TAB PO SCH (19:51)
[2022-06-08] MEDS: CODEINE 30MG/APAP 300MG TAB PO PRN (20:05)
[2022-06-09] MEDS: LIDOCAINE 4% PATCH TOP SCH (07:42)
[2022-06-09] MEDS: NICOTINE 14 MG/PAT TD SCH (07:42)
[2022-06-09] MEDS: SENOSIDES 8.6 MG TAB PO SCH ×2 (07:43→19:02)
[2022-06-09] MEDS: DULOXETINE 20 MG CAP PO SCH (07:43)
[2022-06-09] MEDS: ASPIRIN 81 MG CHEWABLE TABLET PO SCH (07:43)
[2022-06-09] MEDS: THIAMINE HCL 100 MG TABLET PO SCH (07:43)
[2022-06-09] MEDS: FLUDROCORTISONE 0.1 MG TAB PO SCH (07:43)
[2022-06-09] MEDS: FOLIC ACID 1 MG TABLET PO SCH (07:43)
[2022-06-09] MEDS: FAMOTIDINE 20 MG TAB PO SCH ×2 (07:44→19:03)
[2022-06-09] MEDS: MEGESTROL 40 MG TAB PO SCH ×2 (07:44→19:02)
[2022-06-09] MEDS: APIXABAN 2.5 MG TABLET PO SCH ×2 (07:44→19:02)
[2022-06-09] MEDS: ACETAMINOPHEN 500 MG TAB PO PRN ×2 (07:59→18:11)
[2022-06-09] MEDS: NYSTATIN PWDR 100000 UNIT/GM TOP SCH ×2 (08:00→19:03)
[2022-06-09] MEDS: ENSURE ENLIVE 237 ML CAN PO SCH ×2 (09:41→19:03)
[2022-06-09] MEDS: ATORVASTATIN 40 MG TAB PO SCH (19:03)
--- NOTE | 2022-06-09 22:15 | PN ---
Date of Progress Note: 06/09/2022 [facility] Progress Note Visit Time Of Service: 1:30 p.m. Subjective: Mr. Rodríguez is in his bed in between therapy sessions. He reports feeling better althoug h he still has an appearance of being somewhat disinterested in therapy, but he does say he is doing everything he can to improve. Review of Systems: He denies any significant changes such as fevers, chills, any nausea, or vomiting. No changes such a s myalgias, arthralgias, or rash. Physical Examination: Vital Signs: Blood pressure 159/99, pulse 83, respiratory rate 16, and temperature 98.0. General: Mr. Rodríguez does not appear to have any new changes in terms of his examination. He still h as an appearance of disinterest in his therapy. Neurologic: He does have some right hemineglect and diffuse weakness in both upper and lower extremi ties and his right arm is in a sling where he has a right humeral fracture. Laboratory Studies: No new laboratory studies. X-ray/imaging: No new x-ray or imaging. Medications: Unchanged. He still has Eliquis 2.5 mg twice a day for DVT risk reduction, aspirin 81 mg daily for stroke risk reduction. He is on Lipitor 40 mg at bedtime for dyslipidemia. He has Christine inef to support his blood pressure from dropping as he has some orthostatic changes. He has Megace f or poor appetite, Nicoderm patch for tobacco dependency, and thiamine as he has a history of alcohol abuse. Current Level Of Functioning: Currently with therapy, he ambulated 300 feet with contact guard paulina tance without the use of an assistive device. He also did stand pivot transfers independently withou t the use of assistive device with multiple seamxi-dd-pfp transfers independently. Progress Towards Rehabilitation Goals: He is still making excellent progress towards rehabilitation goals of becoming completely independent with all activities of daily living for transfers and ambula ting around 500 feet. One challenge continues to be occasionally incontinent of stool and urine. Assessment: Mr. Rodríguez is a 67-year-old patient with a subacute left hemispheric and right hemispher ic stroke along with right hemifield neglect, right-sided incoordination and diffuse weakness to the lower extremities along with a right humeral fracture. He does have hypertension, dyslipidemia, toba senior gl accountant dependency, and alcohol abuse. Plan: At this stage, he is doing very well with his physical and occupational therapy and that will continue. He does have some appearance of apathy, but when asked to participate he does excellent wi th all his therapy. He will continue aspirin and Plavix for stroke risk reduction, Lipitor for dysli pidemia, Eliquis for DVT reduction, Megace for poor appetite, protein supplementation for malnutritio n, and Senokot-S for constipation. Comorbidities That Continue To Impact Rehabilitation Process: At this point, his incontinence is a f actor making it difficult for him to go back home with family as a result despite him doing very well otherwise, he is actually going to go into penitentiary to continue to try to improve his confide nce level. HODA/SHAHRZAD Voice ID: [id number] Report ID: [id number]
[2022-06-10] MEDS: LIDOCAINE 4% PATCH TOP SCH (07:37)
[2022-06-10] MEDS: FOLIC ACID 1 MG TABLET PO SCH (07:38)
[2022-06-10] MEDS: NICOTINE 14 MG/PAT TD SCH (07:38)
[2022-06-10] MEDS: THIAMINE HCL 100 MG TABLET PO SCH (07:39)
[2022-06-10] MEDS: FAMOTIDINE 20 MG TAB PO SCH ×2 (07:39→19:06)
[2022-06-10] MEDS: APIXABAN 2.5 MG TABLET PO SCH ×2 (07:39→19:05)
[2022-06-10] MEDS: DULOXETINE 20 MG CAP PO SCH (07:39)
[2022-06-10] MEDS: ASPIRIN 81 MG CHEWABLE TABLET PO SCH (07:39)
[2022-06-10] MEDS: MEGESTROL 40 MG TAB PO SCH ×2 (07:39→19:05)
[2022-06-10] MEDS: FLUDROCORTISONE 0.1 MG TAB PO SCH (07:39)
[2022-06-10] MEDS: SENOSIDES 8.6 MG TAB PO SCH ×2 (07:39→19:05)
[2022-06-10] MEDS: ACETAMINOPHEN 500 MG TAB PO PRN ×2 (07:40→15:48)
[2022-06-10] MEDS: NYSTATIN PWDR 100000 UNIT/GM TOP SCH ×2 (07:40→19:06)
[2022-06-10] MEDS: ENSURE ENLIVE 237 ML CAN PO SCH ×2 (07:41→19:06)
[2022-06-10] MEDS: CODEINE 30MG/APAP 300MG TAB PO PRN (18:56)
[2022-06-10] MEDS: ATORVASTATIN 40 MG TAB PO SCH (19:05)
--- NOTE | 2022-06-10 22:32 | PN ---
Date of Progress Note: 06/10/2022 [facility] Progress Note Time Of Service: 1:30 p.m. Subjective: Mr. Rodríguez is resting in bed in between therapy sessions. He reports feeling much anson r than compared to yesterday and his previous exercise days. He says he is able to ambulate to the b athroom when he needs to and would like to go home especially with family. Review of Systems: No fevers, chills, nausea, or vomiting. No significant myalgias or arthralgias. His right humeral f racture is in a sling and has a pain patch on there. Physical Examination: Vital Signs: Blood pressure 128/78, pulse 96, respiratory rate 16, and temperature 98.0. In terms o f his orthostatics: While lying down blood pressure was 204/90 and pulse 80, sitting up blood pressu re was 126/72 and pulse 81, and standing blood pressure 130/78 and pulse 96. He is not symptomatic w ith the changes. Chest: Clear. Heart: Regular. Abdomen: Soft. Musculoskeletal: He has mild right hemineglect and diffuse weakness and the right arm is in a sling with the right humeral fracture. Laboratory Studies: No new laboratory studies. X-ray/imaging: No new x-ray or imaging. Medications: No new medicines compared to yesterday. He still has nicotine patch, Senokot for his c onstipation, Megace for poor appetite, Cymbalta for depression, aspirin for stroke risk reduction, Li pitor for dyslipidemia, and Tylenol 3 and regular Tylenol for pain. Current Functional Status: Mr. Rodríguez was able to ambulate without the use of assistive device cover ing over 900 feet with standby assistance. He did stand and pivot transfers independently without an assistive device. He performed toilet transfers independently. He was continent of bladder, but di d not perform toileting tasks at the time the therapist worked with him. He also did transfers from s it to supine independently. With Speech Pathology, he did simple sentence formation completely on fa miliar topics with 90% accuracy and moderate assistance. [place] naming, completed 3 words named fo r category with 80% accuracy and moderate assistance. Progress Towards Rehabilitation Goals: At this point, he has met and exceeded all of his rehabilitat ion goals. He is independent or near independent with transfers, showering, toileting, and ambulatin g 900 feet with standby assistance and no assistive device, up and down steps and he says he can sens e when he needs to go for both urine and stool. Assessment: Mr. Rodríguez is a 67-year-old patient with a subacute left hemispheric and right hemispher ic stroke and has right hemifield neglect, right-sided incoordination, diffuse weakness of the lower extremities, and a right humeral fracture. His comorbidities are hypertension, dyslipidemia, tobacco dependence, and alcohol abuse. Plan: 1.He is doing very well with physical, occupational, and speech therapy. 2.Continue with the right humeral fracture in sling and pain management including Tylenol 3 as neede d. 3.He does have hypertension and continue with hypertensive medications. He did have episodes of ort hostatic changes and is doing well with that. 4.Continue with medications for dyslipidemia, tobacco dependency, and alcohol abuse. 5.Continue with Megace for poor appetite. 6.Continue with antidepressant. 7.The patient actually should be able to go home with family as he is in excellent shape in terms of his transfers from bed to the bathroom and take care of himself. Comorbidities That Continue To Impact Rehabilitation Process: At this stage his right humeral fractu re is present, but not stopping his ability to do very well. HODA/XIMENAL Voice ID: [id number] Report ID: [id number]
[2022-06-11] MEDS: ACETAMINOPHEN 500 MG TAB PO PRN (01:05)
[2022-06-11 07:16] VITALS: TEMP 97
[2022-06-11] MEDS: NICOTINE 14 MG/PAT TD SCH (07:25)
[2022-06-11] MEDS: ASPIRIN 81 MG CHEWABLE TABLET PO SCH (07:26)
[2022-06-11] MEDS: MEGESTROL 40 MG TAB PO SCH (07:26)
[2022-06-11] MEDS: FLUDROCORTISONE 0.1 MG TAB PO SCH (07:26)
[2022-06-11] MEDS: DULOXETINE 20 MG CAP PO SCH (07:26)
[2022-06-11] MEDS: APIXABAN 2.5 MG TABLET PO SCH (07:26)
[2022-06-11] MEDS: LIDOCAINE 4% PATCH TOP SCH (07:26)
[2022-06-11] MEDS: FAMOTIDINE 20 MG TAB PO SCH (07:26)
[2022-06-11] MEDS: THIAMINE HCL 100 MG TABLET PO SCH (07:27)
[2022-06-11] MEDS: NYSTATIN PWDR 100000 UNIT/GM TOP SCH (07:27)
[2022-06-11] MEDS: SENOSIDES 8.6 MG TAB PO SCH (07:27)
[2022-06-11] MEDS: FOLIC ACID 1 MG TABLET PO SCH (07:29)
[2022-06-11] MEDS: ENSURE ENLIVE 237 ML CAN PO SCH (07:40)
[2022-06-11 10:27] VITALS: BP 142/84
--- NOTE | 2022-06-18 22:35 | DS ---
Date of Discharge: 06/11/2022 Discharge Condition: Good. Discharge Activity: Weightbearing as tolerated. Diet: Heart healthy. Discharge Diagnoses: Stroke, chronic alcohol use, tobacco use, hypertension, abdominal aortic aneury sm, and right proximal humeral fracture. Discharge Followup: Will be with Dr. Yang within the month in addition to his primary care physi edenilson within a month. Equipment: His durable medical equipment needs are met. Medications: Tylenol Extra Strength 500 mg every 6 hours, aspirin 81 mg daily, Lipitor 40 mg at bedt alanna, Plavix 75 mg daily, subcutaneous B12 1000 mcg daily, Cymbalta 20 mg daily, Pepcid 20 mg twice da isi, Florinef 0.1 mg daily, folic acid 1 mg daily, lidocaine patch to the right arm daily as needed, Megace 40 mg twice daily, Mycostatin powder applied topically twice daily. He did receive a pneumoni a vaccine. Senokot 8.6 mg daily, thiamine 100 mg daily. Hospital Course: Mr. Rodríguez is a 67-year-old patient who has a history of alcoholism, tobacco abuse, multiple strokes, hypertension, came to [facility] initially on May 08 after falling . He did hit his right side and actually fractured the right proximal humerus. In addition, he did have multiple rib fractures. He was put in the sling and conservative treatment and sent home. He c priyanka back on May 19, with difficulty speaking, dysphagia, with right hemifield neglect, and right micaela-neglect with inattention. 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 He did have chronic strokes in the right MCA dist ribution. A CT angiogram showed extensive bilateral carotid siphon calcifications. The patient did not receive TNKs as he was out of that window. He did receive medical management including aspirin, Plavix, Lipitor, and neuro checks. As a result of his fracture and stroke residual deficits as outli rhiannon, he was determined to be, along with his comorbid conditions requiring frequent medical attention , at least actually 3 times a week to daily. He was then admitted to the inpatient rehabilitation [facility] for physical, occupational, and speech therapy. Throughout his hospitalization, the patient had s ome challenges with his motivation to do therapy, had some level of apathy and disinterest. Also he had some incontinence of stool and urine despite the ability to make it to the bathroom, he _. He was started on antidepressants and did seem to improve, by the time he was ready for discharge , and at that point he was doing much better, more cooperative, was able to ambulate to the bathroom, and that was communicated with the patient's family that he would do so independently and he promise d to do that and his pain was well managed with a pain patch and Tylenol 3. His appetite has improve d as he had Megace for that. He was taking a patch for tobacco dependency and thiamine for his long history of alcohol use, and again, discharge. Continue with therapy via home health. Progress Made With Physical And Occupational Therapy And Speech Therapy: By discharge in terms of sp eech therapy, he was independent with comprehension, minimum assistance for expression. Consistency was 100%. All his words were intelligible. He was treated for dysarthria, dysphagia, and did improv e. He consumed 100% of his meals. On discharge, his ability to exercise is good. Oral motor activi ties, were actually moderate assistance, but he was 100% intelligible. In terms of physical therapy by discharge, he was at modified independence with a standard hospital bed mobilization. He ambulate d over 450 feet on multiple surfaces both indoors and outdoors with good tolerance and he was indepen dent. He ascended and descended 15 steps with tolerance also. SUV transfer with standard pivot tech nique was done with independence. It is recommended that he continue home health services. His dura ble medical equipment needs were met. In terms of occupational therapy, he was able to show improved wrist strength on the right, although he was nonweightbearing in the right arm because of the amandeep l fracture. The patient did have some lack of awareness of the sequencing to be safe and to keep his weightbearing precautions and was again discharged home with home health to continue. LB/MODL Voice ID: [id number] Report ID: [id number]
== END 2022-06-11 14:45 | disposition home health service (06) | DRG 57 ==
LOC: 5TH 16:44
PROVIDERS: ADMIT Psychiatry & Neurology Neurology with Special Qualifications in Child Neurology; ATTEND Psychiatry & Neurology Neurology with Special Qualifications in Child Neurology
DX: I69.351 Hemiplegia and hemiparesis following cerebral infarction affecting right dominant side (principal); E46 Unspecified protein-calorie malnutrition; Z68.1 Body mass index [BMI] 19.9 or less, adult; S42.201D Unspecified fracture of upper end of right humerus, subsequent encounter for fracture with routine healing; I10 Essential (primary) hypertension; I69.391 Dysphagia following cerebral infarction; R13.10 Dysphagia, unspecified; M25.50 Pain in unspecified joint; M79.10 Myalgia, unspecified site; E78.5 Hyperlipidemia, unspecified; I71.40 Abdominal aortic aneurysm, without rupture, unspecified; F10.10 Alcohol abuse, uncomplicated; K59.00 Constipation, unspecified; F17.210 Nicotine dependence, cigarettes, uncomplicated; F32.A Depression, unspecified; R42 Dizziness and giddiness; R32 Unspecified urinary incontinence; Z20.822 Contact with and (suspected) exposure to COVID-19
CPT/HCPCS: 36415; 80048; 81001; 82040; 83735; 84134; 85025; 87086; 87088; 92507; 92523; 92526; 97110; 97116; 97129; 97130; 97161; 97530; 97542; G0103; J1644; J2001; J3420; J7030; U0003